=== PATIENT | female | born 1990 | race Caucasian/White ===

== ENCOUNTER 2017-11-25 07:11 | Day surgery (SDC) | payer BC ==
[2017-11-25] MEDS ORDERED: Bupivacaine 25%/EPINEPHrine/PF 30 ML ONE (07:13)
[2017-11-25] MEDS ORDERED: Midazolam 1 MG/ML 2 ML SDV ONE (07:26)
[2017-11-25] MEDS ORDERED: fentaNYL 100 MCG/2 ML SDV ONE (07:26)
[2017-11-25] MEDS ORDERED: Ondansetron 4 MG/2 ML SDV ONE (07:26)
[2017-11-25] MEDS ORDERED: Propofol 200 MG/20 ML SDV ONE ×2 (07:26→08:01)
[2017-11-25] MEDS ORDERED: Glycopyrrolate 0.2 MG/ML SDV ONE (07:27)
--- NOTE | 2017-11-25 07:30 | PCM.PREANE ---
Preanesthetic Assessment - Anesthesia/Transfusion/Family Hx Anesthesia History: Prior Anesthesia Without Reaction Family History of Anesthesia Reaction: No Transfusion History: Prior Transfusion Without Reaction Intubation History: Unknown - Review of Systems General: No Symptoms Pulmonary: No Symptoms Cardiovascular: No Symptoms Gastrointestinal: No Symptoms Neurological: No Symptoms Other: Reports: None - Physical Assessment Height: 1.63 m Weight: 97.069 kg ASA Class: 2 Mental Status: Alert & Oriented x3 Airway Class: Mallampati = 2 Dentition: Reports: Normal Dentition Thyro-Mental Finger Breadths: 3 Mouth Opening Finger Breadths: 2 ROM/Head Extension: Full Lungs: Clear to Auscultation, Normal Respiratory Effort Cardiovascular: Regular Rate, Regular Rhythm - Allergies Allergies/Adverse Reactions: Allergies Allergy/AdvReac Type Severity Reaction Status Date / Time No Known Allergies Allergy Verified 11/21/17 13:45 - Blood Blood Available: No - Anesthesia Plan Pre-Op Medication Ordered: None - Acknowledgements Anesthesia Type Planned: General Anesthesia Pt an Appropriate Candidate for the Planned Anesthesia: Yes Alternatives and Risks of Anesthesia Discussed w Pt/Guardian: Yes Pt/Guardian Understands and Agrees with Anesthesia Plan: Yes PreAnesthesia Questionnaire HEENT History: Reports: Other (See Below) Other HEENT History: has upper and lower permanent retainers Gastrointestinal History: Reports: Diverticulosis CARD SETTER History: Reports: Polycystic Ovaries, Musculoskeletal History: Reports: Fracture Endocrine/Metabolic History: Reports: Obesity/BMI 30+ Hematologic History: Reports: Blood Transfusion(s) - Past Surgical History HEENT Surgical History: Reports: Tonsillectomy Female Surgical History: Reports: Section Musculoskeletal Surgical History: Reports: ORIF Other Musculoskeletal Surgeries/Procedures:: hx of pin fixation of left arm- pin removed - SUBSTANCE USE Smoking Status *Q: Former Smoker Tobacco Use Within Last Twelve Months: No Recreational Drug Use History: No - HOME MEDS Home Medications: Home Meds . [No Known Home Meds] 11/21/17 [History] - CURRENT (IN HOUSE) MEDS Current Meds: Current Medications Hydrocodone Bitart/Acetaminophen ([place] 325-5 Mg) 1 tab PO Q4H PRN PRN Reason: Pain Bupivacaine HCl/Epinephrine Bitart (Marcaine 0.25%/Epinephrine 1:200,000) 10 ml INJECT ONETIME ONE Stop: 11/25/17 08:01 Cefazolin Sodium/Dextrose 2 gm (/ Premix) 50 mls @ 100 mls/hr IV ONETIME ONE Stop: 11/25/17 08:29 Lactated Ringer's (Ringers, Lactated) 1,000 mls @ 125 mls/hr IV ASDIRECTED LENNOX Discontinued Medications Bupivacaine HCl/Epinephrine Bitart (Sensor Mpf 0.25%-Epi [id number]) Confirm Administered Dose 30 mls @ as directed .ROUTE .STK-MED ONE Stop: 11/25/17 07:14
[2017-11-25] MEDS ORDERED: Bupivacaine 0.25%/EPINEPHrine 1:200,000 10 ML SDV INJECT ONE (08:00)
[2017-11-25] MEDS ORDERED: Acetaminophen/HYDROcodone 325-5 MG Tab PO PRN (08:00)
[2017-11-25] MEDS ORDERED: Lactated Ringers 1,000 ML IV SCH (08:00)
[2017-11-25] MEDS ORDERED: ceFAZolin 2 GM in Premix Bag 1 BAG IV ONE (08:00)
[2017-11-25] MEDS ORDERED: Dexamethasone 4 MG/ML 5 ML MDV ONE (08:18)
[2017-11-25] MEDS ORDERED: fentaNYL 100 MCG/2 ML SDV IVPUSH PRN (08:50)
--- NOTE | 2017-11-25 09:20 | PCM.POSTAN ---
POST ANESTHESIA ASSESSMENT - MENTAL STATUS Mental Status: Alert, Oriented - RESPIRATORY Respiratory Status: Respiratory Rate WNL, Airway Patent, O2 Saturation Stable - CARDIOVASCULAR CV Status: Pulse Rate WNL, Blood Pressure Stable - GASTROINTESTINAL GI Status: No Symptoms - PAIN Pain Score: 2 - POST OP HYDRATION Hydration Status: Adequate & Stable - OBSERVATIONS Free Text/Narrative:: no anesthesia problems
--- NOTE | 2017-11-25 09:22 | PCM.OPNOTE ---
- General Post-Op/Procedure Note Date of Surgery/Procedure: 11/25/17 Operative Procedure(s): excision of right axillary breast tissue Pre Op Diagnosis: right accesory axillary breast tissue Post-Op Diagnosis: Same Anesthesia Technique: General LMA, Local Primary Surgeon: Keiry Hawkins Inspector Repairer: Loyda Edwards Complications: None Condition: Good Free Text/Narrative:: Intake & Output 11/24/17 11/25/17 11/25/17 23:59 07:59 15:59 Intake Total 1100 Balance 1100
[2017-11-25 10:50] VITALS: BP 106/70
--- NOTE | 2017-11-30 09:37 | OR ---
SURGEON: SUMMER COOPER MD DATE OF PROCEDURE: 11/25/2017 PREOPERATIVE DIAGNOSIS: Right axillary breast tissue. POSTOPERATIVE DIAGNOSIS: Right axillary breast tissue. PROCEDURE PERFORMED: Excision of right axillary breast tissue. PETROLEUM SUPPLY SPECIALIST: None. INDICATIONS: Ms. Pham is a 27-year-old female who was seen today in evaluation for right axillary breast tissue. Risks and benefits of excision were discussed with her, and she was in agreement to proceed. Risks were including, but not limited to, bleeding, infection, damage to underlying or overlying structures, possible need for future interventions, possible asymmetry, and possible scarring. PROCEDURE IN DETAIL: After informed consent was obtained and placed on the chart, the patient was brought to the operating theater and laid in supine position. After adequate general anesthesia was obtained, the area was prepped and draped, and a time-out was completed to confirm side and site. Once adequately confirmed, attention was then paid to dissection using an axillary incision well hidden in the fold. Dissection was then carried through the skin and subcutaneous tissues using a #15 blade and Bovie electrocautery. The area was dissected using scissors and meticulous visualization for dissection around the mass itself or protecting any cutaneous and deeper nerves. Once adequately circumferentially dissected and removed, the area was copiously irrigated and the mass sent for pathology. Meticulous hemostasis was obtained, and the wound was closed using deep 3-0 Monocryl, Stratafix for the fascia, and for the dermis, a running subcuticular Stratafix for the skin. The patient tolerated this well. All counts and needles were correct at the end of the case. FOLLOWUP INSTRUCTIONS: The patient will see us in clinic in 10 to 14 days or sooner if there are any problems, questions, or concerns. She was given a prescription for [place] for pain control. JUNIOR / RACHEL /[id number] RADHA
== END 2017-11-25 10:30 | disposition home or self-care (01) ==
LOC: MW.SDS 07:11
PROVIDERS: ATTEND Plastic Surgery
DX: Q83.1 Accessory breast (principal); K57.90 Diverticulosis of intestine, part unspecified, without perforation or abscess without bleeding; J20.9 Acute bronchitis, unspecified; E28.2 Polycystic ovarian syndrome; E66.9 Obesity, unspecified; Z68.36 Body mass index [BMI] 36.0-36.9, adult; Z90.89 Acquired absence of other organs; Z98.890 Other specified postprocedural states
CPT/HCPCS: 19120; 81025; A9270; J1100; J2250; J2405; J3010; J7120; 88305; J2704

== ENCOUNTER 2020-02-26 05:26 | Inpatient (IN) | payer BC ==
[2020-02-26] MEDS ORDERED: Sodium Chloride 0.9% 10 ML Syringe FLUSH PRN (06:07)
[2020-02-26] MEDS ORDERED: Citric Acid/Sodium Citrate Solution 30 ML Cup PO ONE (06:07)
[2020-02-26] MEDS ORDERED: Sodium Chloride 0.9% 2.5 ML Syringe FLUSH PRN (06:07)
[2020-02-26] MEDS ORDERED: Sodium Chloride 0.9% 10 ML SDV IV PRN (06:07)
[2020-02-26] MEDS ORDERED: Lactated Ringers 1,000 ML IV SCH (06:15)
[2020-02-26] MEDS ORDERED: Oxytocin/0.9 % Sodium Chloride 30 UNIT/500 ML BAG IV SCH (06:15)
[2020-02-26] MEDS ORDERED: Phenylephrine 1% 10 MG/ML SDV ONE (07:13)
[2020-02-26] MEDS ORDERED: Ondansetron 4 MG/2 ML SDV ONE (07:17)
[2020-02-26] MEDS ORDERED: Dexamethasone 4 MG/ML 5 ML MDV ONE (07:17)
[2020-02-26] MEDS ORDERED: Oxytocin 10 Units/1 ML SDV ONE (07:18)
[2020-02-26] MEDS ORDERED: fentaNYL 100 MCG/2 ML SDV ONE (07:18)
[2020-02-26] MEDS ORDERED: Morphine PF 10 MG/10 ML SDV ONE (07:19)
--- NOTE | 2020-02-26 07:38 | PCM.PREANE ---
Preanesthetic Assessment - Anesthesia/Transfusion/Family Hx Anesthesia History: Prior Anesthesia Without Reaction Family History of Anesthesia Reaction: No Transfusion History: Prior Transfusion Without Reaction Intubation History: Unknown - Review of Systems General: No Symptoms Pulmonary: No Symptoms Cardiovascular: No Symptoms Gastrointestinal: No Symptoms Neurological: No Symptoms Other: Reports: None - Physical Assessment NPO Status Date: 02/25/20 Vital Signs: Last Vital Signs Temp 98 F 02/26/20 05:51 Pulse 98 02/26/20 05:51 Resp 20 02/26/20 05:51 BP 126/86 02/26/20 05:51 Pulse Ox 100 02/26/20 05:51 Height: 5 ft 4 in Weight: 104.326 kg ASA Class: 2 Mental Status: Alert & Oriented x3 Airway Class: Mallampati = 2 Dentition: Reports: Normal Dentition ROM/Head Extension: Full Lungs: Clear to Auscultation, Normal Respiratory Effort Cardiovascular: Regular Rate, Regular Rhythm - Lab Values: Laboratory Last Values WBC 8.71 K/uL (4.0-11.0) 02/25/20 08:16 RBC 4.43 M/uL (4.30-5.90) 02/25/20 08:16 Hgb 13.1 g/dL (12.0-16.0) 02/25/20 08:16 Hct 38.7 % (36.0-46.0) 02/25/20 08:16 MCV 87.4 fL (80.0-98.0) 02/25/20 08:16 MCH 29.6 pg (27.0-32.0) 02/25/20 08:16 MCHC 33.9 g/dL (31.0-37.0) 02/25/20 08:16 RDW Std Deviation 43.1 fl (28.0-62.0) 02/25/20 08:16 RDW Coeff of Courtney 14 % (11.0-15.0) 02/25/20 08:16 Plt Count 159 K/uL (150-400) 02/25/20 08:16 MPV 11.00 fL (7.40-12.00) 02/25/20 08:16 Nucleated RBC % 0.0 /100WBC 02/25/20 08:16 Nucleated RBCs # 0 K/uL 02/25/20 08:16 Blood Type A POSITIVE 02/25/20 08:16 Antibody Screen NEGATIVE 02/25/20 08:16 - Allergies Allergies/Adverse Reactions: Allergies Allergy/AdvReac Type Severity Reaction Status Date / Time No Known Allergies Allergy Verified 02/26/20 06:06 - Blood Blood Available: No - Anesthesia Plan Pre-Op Medication Ordered: None - Acknowledgements Anesthesia Type Planned: Spinal Pt an Appropriate Candidate for the Planned Anesthesia: Yes Alternatives and Risks of Anesthesia Discussed w Pt/Guardian: Yes Pt/Guardian Understands and Agrees with Anesthesia Plan: Yes PreAnesthesia Questionnaire HEENT History: Reports: Other (See Below) Other HEENT History: has upper and lower permanent retainers Cardiovascular History: Reports: None Respiratory History: Reports: None Gastrointestinal History: Reports: Diverticulosis Other Gastrointestinal History: diverticulitis Genitourinary History: Reports: None 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 History: Reports: Polycystic Ovaries, Musculoskeletal History: Reports: Fracture Neurological History: Reports: None Psychiatric History: Reports: None Endocrine/Metabolic History: Reports: Obesity/BMI 30+ Hematologic History: Reports: Blood Transfusion(s) Other Hematologic History: blood transfusion with 1st c/section Immunologic History: Reports: None Oncologic (Cancer) History: Reports: None Dermatologic History: Reports: None - Past Surgical History Head Surgeries/Procedures: Reports: None HEENT Surgical History: Reports: Tonsillectomy Cardiovascular Surgical History: Reports: None Respiratory Surgical History: Reports: None GI Surgical History: Reports: Colonoscopy Female Surgical History: Reports: Section Endocrine Surgical History: Reports: None Neurological Surgical History: Reports: None Musculoskeletal Surgical History: Reports: ORIF Other Musculoskeletal Surgeries/Procedures:: hx of pin fixation of left arm- pin removed Oncologic Surgical History: Reports: None Dermatological Surgical History: Reports: None - SUBSTANCE USE Smoking Status *Q: Never Smoker Second Hand Smoke Exposure: No Recreational Drug Use History: No - HOME MEDS Home Medications: Home Meds Iron 30 mg PO DAILY 02/20/20 [History] Pnv No.95/Ferrous Fum/Folic AC [ Vitamin Tablet] 1 tab PO DAILY 02/20/20 [History] - CURRENT (IN HOUSE) MEDS Current Meds: Current Medications Oxytocin/Sodium Chloride (Oxytocin 30 Unit/500 Ml-Ns) 30 unit in 500 mls @ 250 mls/hr IV TITRATE LENNOX Cefazolin Sodium/Dextrose 2 gm (/ Premix) 50 mls @ 100 mls/hr IV ONETIME ONE Stop: 02/26/20 08:14 Lactated Ringer's (Ringers, Lactated) 1,000 mls @ 500 mls/hr IV BOLUS LENNOX Last Admin: 02/26/20 05:55 Dose: 500 mls/hr Documented by: Sodium Chloride (Saline Flush) 10 ml FLUSH ASDIRECTED PRN PRN Reason: Keep Vein Open Sodium Chloride (Saline Flush) 2.5 ml FLUSH ASDIRECTED PRN PRN Reason: Keep Vein Open Sodium Chloride (Normal Saline) 10 ml IV ASDIRECTED PRN PRN Reason: IV Use Discontinued Medications Citric Acid/Sodium Citrate (Bicitra Solution) 30 ml PO ONETIME ONE Stop: 02/26/20 06:08 Last Admin: 02/26/20 07:37 Dose: 30 ml Documented by: Dexamethasone (Dexamethasone) Confirm Administered Dose 20 mg .ROUTE .STK-MED ONE Stop: 02/26/20 07:18 Fentanyl (Sublimaze) Confirm Administered Dose 100 mcg .ROUTE .STK-MED ONE Stop: 02/26/20 07:19 Morphine Sulfate (Duramorph Pf) Confirm Administered Dose 10 mg .ROUTE .STK-MED ONE Stop: 02/26/20 07:20 Ondansetron HCl (Zofran) Confirm Administered Dose 4 mg .ROUTE .STK-MED ONE Stop: 02/26/20 07:18 Oxytocin (Pitocin) Confirm Administered Dose 30 unit .ROUTE .STK-MED ONE Stop: 02/26/20 07:19 Phenylephrine HCl (Julio Cesar-Synephrine) Confirm Administered Dose 10 mg .ROUTE .STK-M ED ONE Stop: 02/26/20 07:14
[2020-02-26] MEDS ORDERED: Acetaminophen/oxyCODONE 325-5 MG Tab PO PRN (07:43)
[2020-02-26] MEDS ORDERED: fentaNYL 100 MCG/2 ML SDV IVPUSH PRN (07:43)
[2020-02-26] MEDS ORDERED: Nalbuphine 10 MG/1 ML Vial IVPUSH PRN (07:44)
[2020-02-26] MEDS ORDERED: ceFAZolin 2 GM in Premix Bag 1 BAG IV ONE (07:45)
[2020-02-26] MEDS ORDERED: ceFAZolin 1 GM Vial ONE (08:13)
[2020-02-26] MEDS ORDERED: Ketorolac 30 MG/ML SDV ONE (08:48)
[2020-02-26] MEDS ORDERED: Misoprostol 200 MCG Tab RECTAL PRN (09:05)
[2020-02-26] MEDS ORDERED: Tranexamic Acid 1,000 MG in Sodium Chloride 0.9% 100 ML IV PRN (09:05)
[2020-02-26] MEDS ORDERED: Methylergonovine 0.2 MG/1 ML Amp IM PRN (09:05)
[2020-02-26] MEDS ORDERED: Lanolin 100% Cream 7 GM Tube TOP PRN (09:05)
[2020-02-26] MEDS ORDERED: Bisacodyl 10 MG Supp RECTAL PRN (09:05)
[2020-02-26] MEDS ORDERED: Oxytocin 10 Units/1 ML SDV IM PRN (09:05)
[2020-02-26] MEDS ORDERED: Aluminum Hydroxide/Magnesium Hydroxide/Simethicone Susp 30 ML Cup PO PRN (09:05)
[2020-02-26] MEDS ORDERED: diphenhydrAMINE 50 MG/ML SDV IVPUSH PRN (09:05)
[2020-02-26] MEDS ORDERED: Ondansetron 4 MG/2 ML SDV IVPUSH PRN (09:05)
--- NOTE | 2020-02-26 09:13 | PCM.OPNOTE ---
- General Post-Op/Procedure Note Date of Surgery/Procedure: 02/26/20 Operative Procedure(s): Repeat low-transverse Pre Op Diagnosis: Repeat Anesthesia Technique: Spinal Primary Surgeon: Lorenza Miranda Anesthesia Provider: Nahum Ruelas Reason Acid Pump Operator Was Necessary: Sheeba Pham [facility] insurance sales assistant Pathology: Placenta with intact membranes Fluid Replacement, Intraop: 1,500 Output, Urine Amount: 350 EBL in mLs: 700 Complications: None Condition: Good Free Text/Narrative:: Live female born at 0822 weighing 3500g via repeat low-transverse c- section, no complications, patient and in good condition
--- NOTE | 2020-02-26 10:04 | PCM.POSTAN ---
POST ANESTHESIA ASSESSMENT - MENTAL STATUS Mental Status: Alert, Oriented - VITAL SIGNS Vital Signs: Last Vital Signs Temp 36.6 C 02/26/20 05:51 Pulse 98 02/26/20 05:51 Resp 20 02/26/20 05:51 BP 126/86 02/26/20 05:51 Pulse Ox 100 02/26/20 05:51 - RESPIRATORY Respiratory Status: Respiratory Rate WNL, Airway Patent, O2 Saturation Stable - CARDIOVASCULAR CV Status: Pulse Rate WNL, Blood Pressure Stable - GASTROINTESTINAL GI Status: No Symptoms - PAIN Pain Score: 2 - POST OP HYDRATION Hydration Status: Adequate & Stable - OBSERVATIONS Free Text/Narrative:: Spinal level regressing (currently L1), able to lift right leg off bed, moves left leg.
[2020-02-26] MEDS: Ketorolac 30 MG/ML SDV IVPUSH SCH ×3 (10:56→21:18)
[2020-02-26] MEDS: Simethicone 80 MG Tab.Chew PO SCH ×3 (12:25→23:59)
[2020-02-26] MEDS: Lactated Ringers 1,000 ML IV SCH ×2 (12:26→20:32)
--- NOTE | 2020-02-26 12:43 | OR ---
SURGEON: Lorenza Miranda M.D. DATE OF PROCEDURE: 02/26/2020 PREOPERATIVE DIAGNOSES: A 39-week intrauterine , previous section, desires repeat. POSTOPERATIVE DIAGNOSES: A 39-week intrauterine , previous section, desires repeat. PROCEDURE: Repeat low transverse section. PRIMARY SURGEON: Lorenza Miranda MD ANESTHESIA: Spinal. ESTIMATED BLOOD LOSS: 700 mL. FLUIDS: 1500 mL of crystalloid. COMPLICATIONS: None known. FINDINGS: Viable female. score of 8 at one minute and 9 at five minutes. Weight of 3500 g. Delivery, intact placenta, 3-vessel cord. DISPOSITION: Infant to nursery, mom to PACU, stable. PROCEDURE DETAILS: Ally is a 29-year-old, G2, P1, at 39 weeks' gestational age, who presents today for a scheduled repeat delivery. Risks of procedure have been discussed. Proper consent obtained. The patient was taken to the operating room where she underwent spinal anesthetic, was then placed in dorsal supine position with leftward tilt. SCDs to lower extremity. Flores to gravity. Was prepped and draped in usual sterile fashion. Received Ancef prophylactically. Time-out was performed. After being prepped and draped in usual sterile fashion, anesthesia was tested, found to be adequate. Previous Pfannenstiel scar was now excised. Subcutaneous tissue was incised down to the level of the rectus fascia, which was incised laterally on either side sharply and bluntly. Superior aspect of the fascia was tented upward, dissected sharply and bluntly away from underlying muscle. In a similar aspect, this was performed to the inferior aspect of the fascia. Rectus muscles were in the midline. Peritoneum was tented upward, entered sharply. Peritoneum and rectus muscles were now lateralized bluntly. Uterine position and position palpated. Self-retaining retractor was gently placed. Uterovesical reflection was visualized. Bladder flap was created sharply and bluntly. Bladder was mobilized away from lower uterine segment. Low transverse hysterotomy was now performed. Uterine cavity was entered with blunt-ended scalpel. Hysterotomy was lateralized bluntly. Amniotomy was performed, clear fluid returned. Infant's head was flexed, delivered from the pelvis. Fundal pressure was applied. The head was delivered followed by anterior shoulder, posterior shoulder, and the remainder of the body without difficulty. Infant's oropharynx and nares were bulb suctioned. The cord was clamped x2 and cut. was handed off to attending nursery staff. Cord arterial, cord venous, cord blood sampling obtained. Light pressure was applied, the placenta now delivered. Uterine cavity was cleared of all clot and debris. Hysterotomy was repaired using 0 Vicryl in continuous running locked fashion followed by a re-imbricating layer. There were two regions of bleeding along the left lateral aspect of the incision. This was replicated with figure- of-eight sutures x2. Hemostasis thereafter evident. Posterior aspect of the uterus inspected. No defects or hematomas found be forming. Region was well irrigated, suction dried. Tubes and ovaries appeared normal. Uterus returned to the abdominal cavity. Colonic gutters cleared of all clot and debris, well irrigated, suction dried. Hysterotomy once again inspected, any areas of serosal oozing were cauterized. Hemostasis appeared evident. Uterus remained firm. Self-retaining retractor now gently removed. Bladder blade was placed. Hysterotomy once again inspected, found to be hemostatic. Rectus muscle and peritoneum were now reapproximated using 0 Vicryl in inverted mattress suture technique. Anterior aspect of the muscle and posterior aspect of the fascia were closely inspected and any areas of oozing were cauterized. Rectus fascia was reapproximated using 0 Vicryl in continuous running fashion, beginning laterally on each side and meeting in the midline. Subcutaneous tissue was well irrigated, suction dried, any areas of oozing were cauterized. Skin edges were reapproximated using 3-0 Vicryl on a Miguel needle in subcuticular fashion followed by Mastisol and half-inch Steri-Strips. Sponge, instrument, and needle count was correct x2. The patient tolerated the procedure well overall. She will go to PACU in stable condition, infant to nursery. GERSON / RACHEL /[id number]
[2020-02-26] MEDS: Docusate Sodium 100 MG Cap PO SCH (20:32)
[2020-02-27] MEDS: Ketorolac 30 MG/ML SDV IVPUSH SCH ×2 (03:33→10:46)
[2020-02-27] MEDS: Simethicone 80 MG Tab.Chew PO SCH ×3 (06:12→17:23)
--- NOTE | 2020-02-27 07:22 | PCM.PNPP ---
<Sheeba Pham - Last Filed: 02/27/20 07:29> - General Info Date of Service: 02/27/20 Admission Dx/Problem (Free Text): Repeat low-transverse c section Subjective Update: Patient is feeling well, reports pain is well controlled. She is about a 3 for incisional pain when she is walking. Ambulating, bush out, passing flatus, no urination since bush out, no bowel movement. Trace pedal edema with slight ecchymosis of the left posterior ankle, nontender to palpation and not swollen out of proportion to the other ankle. is nursing well Functional Status: Reports: Pain Controlled, Tolerating Diet, Ambulating Pain Score: 3 (With ambulation) - Review of Systems General: Reports: No Symptoms HEENT: Reports: No Symptoms Pulmonary: Reports: No Symptoms Cardiovascular: Reports: No Symptoms Gastrointestinal: Reports: Flatus Genitourinary: Reports: No Symptoms Musculoskeletal: Reports: No Symptoms Skin: Reports: No Symptoms Neurological: Reports: No Symptoms Psychiatric: Reports: No Symptoms - General Info Date of Service: 02/27/20 - Patient Data Vital Signs - Most Recent: Last Vital Signs Temp 98.4 F 02/27/20 03:00 Pulse 68 02/27/20 06:34 Resp 16 02/27/20 06:34 BP 117/82 02/27/20 03:00 Pulse Ox 99 02/27/20 06:34 Weight - Most Recent: 104.326 kg I&O - Last 24 Hours: Intake & Output 02/26/20 02/27/20 02/27/20 22:59 06:59 14:59 Intake Total 527 Output Total 555 930 Balance -248 -930 Lab Results - Last 24 Hours: Laboratory Results - last 24 hr 02/26/20 02/27/20 Range/Units 08:22 05:37 Hgb 9.9 L (12.0-16.0) g/dL Hct 30.2 L (36.0-46.0) % Cord ABG pH 7.265 (7.18-7.38) Cord ABG Base Excess -2 (-10--2) Cord VBG pH 7.357 (7.25-7.45) Cord VBG Base Excess -2 (-10--2) Med Orders - Current: Current Medications Al Hydroxide/Mg Hydroxide (Mag-Al Plus) 30 ml PO Q8H PRN PRN Reason: Heartburn Bisacodyl (Dulcolax) 10 mg RECTAL ONETIME PRN PRN Reason: Constipation Diphenhydramine HCl (Benadryl) 25 mg IVPUSH Q6H PRN PRN Reason: Itching or Nausea Docusate Sodium (Colace) 100 mg PO BID [facility] Last Admin: 02/26/20 20:32 Dose: 100 mg Documented by: Emollient Ointment (Lansinoh Hpa) 0 gm TOP ASDIRECTED PRN PRN Reason: Sore Nipples Fentanyl (Sublimaze) 50 mcg IVPUSH Q5M PRN PRN Reason: Pain (severe 7-10) Stop: 02/27/20 07:44 Oxytocin/Sodium Chloride (Oxytocin 30 Unit/500 Ml-Ns) 30 unit in 500 mls @ 250 mls/hr IV TITRATE [facility] Lactated Ringer's (Ringers, Lactated) 1,000 mls @ 500 mls/hr IV BOLUS [facility] Last Admin: 02/26/20 05:55 Dose: 500 mls/hr Documented by: Lactated Ringer's (Ringers, Lactated) 1,000 mls @ 125 mls/hr IV ASDIRECTED [facility] Last Admin: 02/26/20 20:32 Dose: 125 mls/hr Documented by: Tranexamic Acid 1,000 mg/ (Sodium Chloride) 110 mls @ 660 mls/hr IV ONETIME PRN PRN Reason: Bleeding Ibuprofen (Motrin) 800 mg PO Q8H PRN PRN Reason: mild pain or fever Ketorolac Tromethamine (Toradol) 30 mg IVPUSH Q6H [facility] Stop: 02/27/20 09:16 Last Admin: 02/27/20 03:33 Dose: 30 mg Documented by: Methylergonovine Maleate (Methergine) 0.2 mg IM ONETIME PRN PRN Reason: Excessive Vaginal Bleeding Misoprostol (Cytotec) 1,000 mcg RECTAL ONETIME PRN PRN Reason: excessive bleeding Nalbuphine HCl (Nubain) 2.5 mg IVPUSH Q3H PRN PRN Reason: Pruritis Stop: 02/27/20 07:44 Ondansetron HCl (Zofran) 4 mg IVPUSH Q4H PRN PRN Reason: Nausea/Vomiting Oxycodone/Acetaminophen (Percocet 325-5 Mg) 1 tab PO ONETIME PRN PRN Reason: Pain (moderate 4-6) Oxycodone/Acetaminophen (Percocet 325-5 Mg) 1 tab PO Q4H PRN PRN Reason: Pain (moderate 4-6) Oxycodone/Acetaminophen (Percocet 325-5 Mg) 2 tab PO Q4H PRN PRN Reason: Pain (moderate 4-6) Oxytocin (Pitocin) 10 unit IM ASDIRECTED PRN PRN Reason: Excessive Vaginal Bleeding Simethicone (Simethicone) 160 mg PO QID [facility] Last Admin: 02/27/20 06:12 Dose: 160 mg Documented by: Sodium Chloride (Saline Flush) 10 ml FLUSH ASDIRECTED PRN PRN Reason: Keep Vein Open Sodium Chloride (Saline Flush) 2.5 ml FLUSH ASDIRECTED PRN PRN Reason: Keep Vein Open Sodium Chloride (Normal Saline) 10 ml IV ASDIRECTED PRN PRN Reason: IV Use Discontinued Medications Cefazolin Sodium (Ancef) Confirm Administered Dose 2 gm .ROUTE .STK-MED ONE Stop: 02/26/20 08:14 Citric Acid/Sodium Citrate (Bicitra Solution) 30 ml PO ONETIME ONE Stop: 02/26/20 06:08 Last Admin: 02/26/20 07:37 Dose: 30 ml Documented by: Dexamethasone (Dexamethasone) Confirm Administered Dose 20 mg .ROUTE .STK-MED ONE Stop: 02/26/20 07:18 Fentanyl (Sublimaze) Confirm Administered Dose 100 mcg .ROUTE .STK-MED ONE Stop: 02/26/20 07:19 Cefazolin Sodium/Dextrose 2 gm (/ Premix) 50 mls @ 100 mls/hr IV ONETIME ONE Stop: 02/26/20 08:14 Last Admin: 02/26/20 10:56 Dose: Not Given Documented by: Ketorolac Tromethamine (Toradol) Confirm Administered Dose 30 mg .ROUTE .STK-MED ONE Stop: 02/26/20 08:49 Morphine Sulfate (Duramorph Pf) Confirm Administered Dose 10 mg .ROUTE .STK-MED ONE Stop: 02/26/20 07:20 Ondansetron HCl (Zofran) Confirm Administered Dose 4 mg .ROUTE .STK-MED ONE Stop: 02/26/20 07:18 Oxytocin (Pitocin) Confirm Administered Dose 30 unit .ROUTE .STK-MED ONE Stop: 02/26/20 07:19 Phenylephrine HCl (Julio Cesar-Synephrine) Confirm Administered Dose 10 mg .ROUTE .STK- MED ONE Stop: 02/26/20 07:14 - Infant Interaction Infant Disposition, : at Bedside Infant Interaction: Holding Feeding: Attempted ; Nursed Fair/Poor (Working with the nipple shield, seems to do better with that) Support Person: - Recovery Exam Fundal Tone: Firm Fundal Level: 1 Fingerbreadths Below Umbilicus Fundal Placement: Midline Lochia Amount: Scant Lochia Color: Rubra/Red Perineum Description: Intact, Minimal Bruising/Swelling Episiotomy/Laceration: None Bladder Status: No: Indwelling Catheter in Place (Catheter out this am, no urination yet) Urinary Elimination: No: Indwelling Catheter - Exam General: Alert, Oriented, Cooperative, No Acute Distress Lungs: Clear to Auscultation, Normal Respiratory Effort Cardiovascular: Regular Rate, Regular Rhythm GI/Abdominal Exam: Normal Bowel Sounds, Soft, Non-Tender, No Organomegaly, No Distention, No Abnormal Bruit, No Mass, Pelvis Stable Extremities: Normal Inspection, Normal Range of Motion, Non-Tender, Pedal Edema. No: Keshia's Sign, Leg Pain (Small ecchymosis of the left posterior ankle ) Skin: Warm, Dry, Intact Wound/Incisions: Dressing Dry and Intact, No Drainage (Dried blood on bandage, no oozing) Psy/Mental Status: Alert, Normal Affect, Normal Mood - Assessment Assessment:: 29 yo s/p POD1 for repeat low-transverse , no complications, progressing well and pain is well controlled - Plan Plan:: Continue post- cares Bush out, await urination Ambulation Incentive spirometry x10 per day Diet as tolerated Adequate fluid intake Scheduled pain meds Shower today D/c home tomorrow after 48 hours <Lorenza Miranda - Last Filed: 02/27/20 08:50> - Patient Data Vital Signs - Most Recent: Last Vital Signs Temp 36.9 C 02/27/20 03:00 Pulse 68 02/27/20 06:34 Resp 16 08/05/20 06:34 BP 117/82 02/27/20 03:00 Pulse Ox 99 02/27/20 06:34 I&O - Last 24 Hours: Intake & Output 02/26/20 02/27/20 02/27/20 22:59 06:59 14:59 Intake Total 527 Output Total 775 930 Balance -248 -930 Lab Results - Last 24 Hours: Laboratory Results - last 24 hr 02/26/20 02/27/20 Range/Units 08:22 05:37 Hgb 9.9 L (12.0-16.0) g/dL Hct 30.2 L (36.0-46.0) % Cord ABG pH 7.265 (7.18-7.38) Cord ABG Base Excess -2 (-10--2) Cord VBG pH 7.357 (7.25-7.45) Cord VBG Base Excess -2 (-10--2) Med Orders - Current: Current Medications Al Hydroxide/Mg Hydroxide (Mag-Al Plus) 30 ml PO Q8H PRN PRN Reason: Heartburn Bisacodyl (Dulcolax) 10 mg RECTAL ONETIME PRN PRN Reason: Constipation Diphenhydramine HCl (Benadryl) 25 mg IVPUSH Q6H PRN PRN Reason: Itching or Nausea Docusate Sodium (Colace) 100 mg PO BID [facility] Last Admin: 02/26/20 20:32 Dose: 100 mg Documented by: Emollient Ointment (Lansinoh Hpa) 0 gm TOP ASDIRECTED PRN PRN Reason: Sore Nipples Oxytocin/Sodium Chloride (Oxytocin 30 Unit/500 Ml-Ns) 30 unit in 500 mls @ 250 mls/hr IV TITRATE [facility] Lactated Ringer's (Ringers, Lactated) 1,000 mls @ 500 mls/hr IV BOLUS [facility] Last Admin: 02/26/20 05:55 Dose: 500 mls/hr Documented by: Lactated Ringer's (Ringers, Lactated) 1,000 mls @ 125 mls/hr IV ASDIRECTED [facility] Last Admin: 02/26/20 20:32 Dose: 125 mls/hr Documented by: Tranexamic Acid 1,000 mg/ (Sodium Chloride) 110 mls @ 660 mls/hr IV ONETIME PRN PRN Reason: Bleeding Ibuprofen (Motrin) 800 mg PO Q8H PRN PRN Reason: mild pain or fever Ketorolac Tromethamine (Toradol) 30 mg IVPUSH Q6H [facility] Stop: 02/27/20 09:16 Last Admin: 02/27/20 03:33 Dose: 30 mg Documented by: Methylergonovine Maleate (Methergine) 0.2 mg IM ONETIME PRN PRN Reason: Excessive Vaginal Bleeding Misoprostol (Cytotec) 1,000 mcg RECTAL ONETIME PRN PRN Reason: excessive bleeding Ondansetron HCl (Zofran) 4 mg IVPUSH Q4H PRN PRN Reason: Nausea/Vomiting Oxycodone/Acetaminophen (Percocet 325-5 Mg) 1 tab PO ONETIME PRN PRN Reason: Pain (moderate 4-6) Oxycodone/Acetaminophen (Percocet 325-5 Mg) 1 tab PO Q4H PRN PRN Reason: Pain (moderate 4-6) Oxycodone/Acetaminophen (Percocet 325-5 Mg) 2 tab PO Q4H PRN PRN Reason: Pain (moderate 4-6) Oxytocin (Pitocin) 10 unit IM ASDIRECTED PRN PRN Reason: Excessive Vaginal Bleeding Simethicone (Simethicone) 160 mg PO QID [facility] Last Admin: 02/27/20 06:12 Dose: 160 mg Documented by: Sodium Chloride (Saline Flush) 10 ml FLUSH ASDIRECTED PRN PRN Reason: Keep Vein Open Sodium Chloride (Saline Flush) 2.5 ml FLUSH ASDIRECTED PRN PRN Reason: Keep Vein Open Sodium Chloride (Normal Saline) 10 ml IV ASDIRECTED PRN PRN Reason: IV Use Discontinued Medications Cefazolin Sodium (Ancef) Confirm Administered Dose 2 gm .ROUTE .STK-MED ONE Stop: 02/26/20 08:14 Citric Acid/Sodium Citrate (Bicitra Solution) 30 ml PO ONETIME ONE Stop: 02/26/20 06:08 Last Admin: 02/26/20 07:37 Dose: 30 ml Documented by: Dexamethasone (Dexamethasone) Confirm Administered Dose 20 mg .ROUTE .STK-MED ONE Stop: 02/26/20 07:18 Fentanyl (Sublimaze) Confirm Administered Dose 100 mcg .ROUTE .STK-MED ONE Stop: 02/26/20 07:19 Fentanyl (Sublimaze) 50 mcg IVPUSH Q5M PRN PRN Reason: Pain (severe 7-10) Stop: 02/27/20 07:44 Cefazolin Sodium/Dextrose 2 gm (/ Premix) 50 mls @ 100 mls/hr IV ONETIME ONE Stop: 02/26/20 08:14 Last Admin: 02/26/20 10:56 Dose: Not Given Documented by: Ketorolac Tromethamine (Toradol) Confirm Administered Dose 30 mg .ROUTE .STK-MED ONE Stop: 02/26/20 08:49 Morphine Sulfate (Duramorph Pf) Confirm Administered Dose 10 mg .ROUTE .STK-MED ONE Stop: 02/26/20 07:20 Nalbuphine HCl (Nubain) 2.5 mg IVPUSH Q3H PRN PRN Reason: Pruritis Stop: 02/27/20 07:44 Ondansetron HCl (Zofran) Confirm Administered Dose 4 mg .ROUTE .STK-MED ONE Stop: 02/26/20 07:18 Oxytocin (Pitocin) Confirm Administered Dose 30 unit .ROUTE .STK-MED ONE Stop: 02/26/20 07:19 Phenylephrine HCl (Julio Cesar-Synephrine) Confirm Administered Dose 10 mg .ROUTE .STK- MED ONE Stop: 02/26/20 07:14 - Problem List & Annotations (1) Status post repeat low transverse section SNOMED Code(s): 528896343, 34107433, 762942406, [id number], 981931274 Code(s): Z98.891 - HISTORY OF UTERINE SCAR FROM PREVIOUS SURGERY Status: Acute Current Visit: Yes - Problem List Review Problem List Initiated/Reviewed/Updated: Yes - My Orders Last 24 Hours: My Active Orders 02/26/20 09:05 Patient Status [ADT] Routine Ambulate [RC] PER UNIT ROUTINE Antiembolic Devices [RC] PER UNIT ROUTINE Communication Order [RC] PER UNIT ROUTINE Communication Order [RC] PER UNIT ROUTINE Communication Order [RC] Per Unit Routine May Shower [RC] ASDIRECTED Notify Provider Intake and Out [RC] ASDIRECTED Notify Provider Vital Signs [RC] ASDIRECTED RT Incentive Spirometry [RC] Q2HWA Acetaminophen/oxyCODONE [Percocet 325-5 MG] 1 tab PO Q4H PRN Acetaminophen/oxyCODONE [Percocet 325-5 MG] 2 tab PO Q4H PRN Alum Hydrox/Mag Hydrox/Simeth [Mag-Al Plus] 30 ml PO Q8H PRN Lanolin [Lansinoh HPA] See Dose Instructions TOP ASDIRECTED PRN Methylergonovine [Methergine] 0.2 mg IM ONETIME PRN Ondansetron [Zofran] 4 mg IVPUSH Q4H PRN Oxytocin [Pitocin] 10 unit IM ASDIRECTED PRN Tranexamic Acid [Cyklokapron] 1,000 mg Sodium Chloride 0.9% [Normal Saline] 100 ml IV ONETIME bisacodyL [Dulcolax] 10 mg RECTAL ONETIME PRN diphenhydrAMINE [Benadryl] 25 mg IVPUSH Q6H PRN miSOPROStoL [Cytotec] 1,000 mcg RECTAL ONETIME PRN Abdominal Binder [OM.PC] Routine Assess Lochia [WOMSER] Per Unit Routine Assess Uterine Involution [WOMSER] Per Unit Routine Breast Pump [WOMSER] Per Unit Routine Heat Therapy [OM.PC] Routine Ice Therapy [OM.PC] Routine Peripheral IV Discontinue [OM.PC] Routine Sequential Compression Device [OM.PC] Per Unit Routine 02/26/20 09:15 Ketorolac [Toradol] 30 mg IVPUSH Q6H Lactated Ringers [Ringers, Lactated] 1,000 ml IV ASDIRECTED 02/26/20 Lunch Regular Diet [DIET] 02/26/20 12:00 Simethicone 160 mg PO QID 02/26/20 21:00 Docusate Sodium [Colace] 100 mg PO BID 02/27/20 15:15 Ibuprofen [Motrin] 800 mg PO Q8H PRN - Plan Plan:: Patient seen and examined, doing well overal. Continue PP cares.
--- NOTE | 2020-02-27 07:28 | PCM48HPAN ---
Post Anesthesia Note - EVALUATION WITHIN 48HRS OF ANESTHETIC Vital Signs in Normal Range: Yes Patient Participated in Evaluation: Yes Respiratory Function Stable: Yes Airway Patent: Yes Cardiovascular Function Stable: Yes Hydration Status Stable: Yes Pain Control Satisfactory: Yes (denies pain at rest, 3/10 incisional pain with movement. Good pain control.) Nausea and Vomiting Control Satisfactory: Yes (Denies N/V, taking PO fluids and food well.) Mental Status Recovered: Yes Vital Signs: Last Vital Signs Temp 36.9 C 02/27/20 03:00 Pulse 68 02/27/20 06:34 Resp 16 02/27/20 06:34 BP 117/82 02/27/20 03:00 Pulse Ox 99 02/27/20 06:34 - COMMENTS/OBSERVATIONS Free Text/Narrative:: Reports steady ambulation with full return of strength and sensation to BLE.
[2020-02-27] MEDS: Acetaminophen/oxyCODONE 325-5 MG Tab PO PRN ×4 (09:01→21:27)
[2020-02-27] MEDS: Docusate Sodium 100 MG Cap PO SCH ×2 (09:01→21:27)
[2020-02-27] MEDS: Ibuprofen 800 MG Tab PO PRN ×2 (14:29→22:36)
[2020-02-28] MEDS: Simethicone 80 MG Tab.Chew PO SCH ×2 (00:02→06:12)
[2020-02-28] MEDS: Acetaminophen/oxyCODONE 325-5 MG Tab PO PRN (03:59)
--- NOTE | 2020-02-28 07:47 | PCM.PNPP ---
<Sheeba Pham - Last Filed: 02/28/20 07:42> - General Info Date of Service: 02/28/20 Admission Dx/Problem (Free Text): Repeat low-transverse Subjective Update: Patient is feeling well, reports pain is well controlled this am. She states yesterday afternoon she was in a lot more pain but it has improved. Ambulating, passing flatus, yet to have a bowel movement. Urinating with mild discomfort. Tolerating general diet. Working with infant to nurse and supplement with bottle. Functional Status: Reports: Pain Controlled, Tolerating Diet, Ambulating, Urinating Pain Score: 1 - Review of Systems General: Reports: No Symptoms HEENT: Reports: No Symptoms Pulmonary: Reports: No Symptoms Cardiovascular: Reports: No Symptoms Gastrointestinal: Reports: Flatus. Denies: Decreased Appetite, Nausea, Vomiting Genitourinary: Reports: No Symptoms (Mild irritation with urination but not burning) Musculoskeletal: Reports: No Symptoms Skin: Reports: No Symptoms Neurological: Reports: No Symptoms Psychiatric: Reports: No Symptoms - General Info Date of Service: 02/28/20 - Patient Data Vital Signs - Most Recent: Last Vital Signs Temp 97.5 F 02/28/20 04:00 Pulse 77 02/28/20 04:00 Resp 15 02/28/20 04:00 BP 115/63 02/28/20 04:00 Pulse Ox 96 02/28/20 04:00 Weight - Most Recent: 104.326 kg Med Orders - Current: Current Medications Al Hydroxide/Mg Hydroxide (Mag-Al Plus) 30 ml PO Q8H PRN PRN Reason: Heartburn Bisacodyl (Dulcolax) 10 mg RECTAL ONETIME PRN PRN Reason: Constipation Diphenhydramine HCl (Benadryl) 25 mg IVPUSH Q6H PRN PRN Reason: Itching or Nausea Docusate Sodium (Colace) 100 mg PO BID [facility] Last Admin: 02/27/20 21:27 Dose: 100 mg Documented by: Emollient Ointment (Lansinoh Hpa) 0 gm TOP ASDIRECTED PRN PRN Reason: Sore Nipples Oxytocin/Sodium Chloride (Oxytocin 30 Unit/500 Ml-Ns) 30 unit in 500 mls @ 250 mls/hr IV TITRATE [facility] Lactated Ringer's (Ringers, Lactated) 1,000 mls @ 500 mls/hr IV BOLUS [facility] Last Admin: 02/26/20 05:55 Dose: 500 mls/hr Documented by: Lactated Ringer's (Ringers, Lactated) 1,000 mls @ 125 mls/hr IV ASDIRECTED [facility] Last Admin: 02/26/20 20:32 Dose: 125 mls/hr Documented by: Tranexamic Acid 1,000 mg/ (Sodium Chloride) 110 mls @ 660 mls/hr IV ONETIME PRN PRN Reason: Bleeding Ibuprofen (Motrin) 800 mg PO Q8H PRN PRN Reason: mild pain or fever Last Admin: 02/27/20 22:36 Dose: 800 mg Documented by: Methylergonovine Maleate (Methergine) 0.2 mg IM ONETIME PRN PRN Reason: Excessive Vaginal Bleeding Misoprostol (Cytotec) 1,000 mcg RECTAL ONETIME PRN PRN Reason: excessive bleeding Ondansetron HCl (Zofran) 4 mg IVPUSH Q4H PRN PRN Reason: Nausea/Vomiting Oxycodone/Acetaminophen (Percocet 325-5 Mg) 1 tab PO ONETIME PRN PRN Reason: Pain (moderate 4-6) Oxycodone/Acetaminophen (Percocet 325-5 Mg) 1 tab PO Q4H PRN PRN Reason: Pain (moderate 4-6) Last Admin: 02/27/20 17:23 Dose: 1 tab Documented by: Oxycodone/Acetaminophen (Percocet 325-5 Mg) 2 tab PO Q4H PRN PRN Reason: Pain (moderate 4-6) Last Admin: 02/28/20 03:59 Dose: 2 tab Documented by: Oxytocin (Pitocin) 10 unit IM ASDIRECTED PRN PRN Reason: Excessive Vaginal Bleeding Simethicone (Simethicone) 160 mg PO QID [facility] Last Admin: 02/28/20 06:12 Dose: 160 mg Documented by: Sodium Chloride (Saline Flush) 10 ml FLUSH ASDIRECTED PRN PRN Reason: Keep Vein Open Sodium Chloride (Saline Flush) 2.5 ml FLUSH ASDIRECTED PRN PRN Reason: Keep Vein Open Sodium Chloride (Normal Saline) 10 ml IV ASDIRECTED PRN PRN Reason: IV Use Discontinued Medications Cefazolin Sodium (Ancef) Confirm Administered Dose 2 gm .ROUTE .STK-MED ONE Stop: 02/26/20 08:14 Citric Acid/Sodium Citrate (Bicitra Solution) 30 ml PO ONETIME ONE Stop: 02/26/20 06:08 Last Admin: 02/26/20 07:37 Dose: 30 ml Documented by: Dexamethasone (Dexamethasone) Confirm Administered Dose 20 mg .ROUTE .STK-MED ONE Stop: 02/26/20 07:18 Fentanyl (Sublimaze) Confirm Administered Dose 100 mcg .ROUTE .STK-MED ONE Stop: 02/26/20 07:19 Fentanyl (Sublimaze) 50 mcg IVPUSH Q5M PRN PRN Reason: Pain (severe 7-10) Stop: 02/27/20 07:44 Cefazolin Sodium/Dextrose 2 gm (/ Premix) 50 mls @ 100 mls/hr IV ONETIME ONE Stop: 02/26/20 08:14 Last Admin: 02/26/20 10:56 Dose: Not Given Documented by: Ketorolac Tromethamine (Toradol) Confirm Administered Dose 30 mg .ROUTE .STK-MED ONE Stop: 02/26/20 08:49 Ketorolac Tromethamine (Toradol) 30 mg IVPUSH Q6H [facility] Stop: 02/27/20 09:16 Last Admin: 02/27/20 10:46 Dose: Not Given Documented by: Morphine Sulfate (Duramorph Pf) Confirm Administered Dose 10 mg .ROUTE .STK-MED ONE Stop: 02/26/20 07:20 Nalbuphine HCl (Nubain) 2.5 mg IVPUSH Q3H PRN PRN Reason: Pruritis Stop: 02/27/20 07:44 Ondansetron HCl (Zofran) Confirm Administered Dose 4 mg .ROUTE .STK-MED ONE Stop: 02/26/20 07:18 Oxytocin (Pitocin) Confirm Administered Dose 30 unit .ROUTE .STK-MED ONE Stop: 02/26/20 07:19 Phenylephrine HCl (Julio Cesar-Synephrine) Confirm Administered Dose 10 mg .ROUTE .STK- MED ONE Stop: 02/26/20 07:14 - Infant Interaction Infant Disposition, : [place] at Bedside Infant Interaction: Holding Infant Feeding: Attempted ; Nursed Fair/Poor (Working with the nipple shield, seems to do better with that, supplementing with bottle feeding) Support Person: - Recovery Exam Fundal Tone: Firm Fundal Level: 1 Fingerbreadths Below Umbilicus Fundal Placement: Midline Lochia Amount: None Lochia Color: Alba/White Perineum Description: Intact, Minimal Bruising/Swelling Episiotomy/Laceration: None Bladder Status: Voiding Urinary Elimination: Voided Other Urinary Elimination, : Catheter removed on previous shift, waiting for first void post removal - Exam General: Alert, Oriented, Cooperative, No Acute Distress Neck: Supple Lungs: Clear to Auscultation, Normal Respiratory Effort Cardiovascular: Regular Rate, Regular Rhythm GI/Abdominal Exam: Normal Bowel Sounds, Soft, Non-Tender, No Organomegaly, No Distention, No Abnormal Bruit, No Mass, Pelvis Stable Extremities: Normal Inspection, Normal Range of Motion, Non-Tender, No Pedal Edema, Normal Capillary Refill Skin: Warm, Dry, Intact Wound/Incisions: Healing Well, Dressing Dry and Intact, No Drainage. No: Erythema Neurological: No New Focal Deficit Psy/Mental Status: Alert, Normal Affect, Normal Mood - Assessment Assessment:: 29 yo s/p POD2 for repeat low-transverse , no complications, progressing well and pain is well controlled - Plan Plan:: Patient seen and examined, doing well overall D/c home today Discharge instructions to be given at bedside Percocet and motrin as needed, as prescribed for pain Pelvic rest x4 weeks Continue PP cares Follow-up in 2 weeks <Lorenza Miranda - Last Filed: 02/28/20 08:42> - Patient Data Vital Signs - Most Recent: Last Vital Signs Temp 36.5 C 02/28/20 08:00 Pulse 73 02/28/20 08:00 Resp 18 02/28/20 08:00 BP 116/68 02/28/20 08:00 Pulse Ox 96 02/28/20 08:00 Med Orders - Current: Current Medications Al Hydroxide/Mg Hydroxide (Mag-Al Plus) 30 ml PO Q8H PRN PRN Reason: Heartburn Bisacodyl (Dulcolax) 10 mg RECTAL ONETIME PRN PRN Reason: Constipation Diphenhydramine HCl (Benadryl) 25 mg IVPUSH Q6H PRN PRN Reason: Itching or Nausea Docusate Sodium (Colace) 100 mg PO BID [facility] Last Admin: 02/28/20 08:13 Dose: 100 mg Documented by: Emollient Ointment (Lansinoh Hpa) 0 gm TOP ASDIRECTED PRN PRN Reason: Sore Nipples Oxytocin/Sodium Chloride (Oxytocin 30 Unit/500 Ml-Ns) 30 unit in 500 mls @ 250 mls/hr IV TITRATE [facility] Lactated Ringer's (Ringers, Lactated) 1,000 mls @ 500 mls/hr IV BOLUS [facility] Last Admin: 02/26/20 05:55 Dose: 500 mls/hr Documented by: Lactated Ringer's (Ringers, Lactated) 1,000 mls @ 125 mls/hr IV ASDIRECTED [facility] Last Admin: 02/26/20 20:32 Dose: 125 mls/hr Documented by: Tranexamic Acid 1,000 mg/ (Sodium Chloride) 110 mls @ 660 mls/hr IV ONETIME PRN PRN Reason: Bleeding Ibuprofen (Motrin) 800 mg PO Q8H PRN PRN Reason: mild pain or fever Last Admin: 02/28/20 08:12 Dose: 800 mg Documented by: Methylergonovine Maleate (Methergine) 0.2 mg IM ONETIME PRN PRN Reason: Excessive Vaginal Bleeding Misoprostol (Cytotec) 1,000 mcg RECTAL ONETIME PRN PRN Reason: excessive bleeding Ondansetron HCl (Zofran) 4 mg IVPUSH Q4H PRN PRN Reason: Nausea/Vomiting Oxycodone/Acetaminophen (Percocet 325-5 Mg) 1 tab PO ONETIME PRN PRN Reason: Pain (moderate 4-6) Oxycodone/Acetaminophen (Percocet 325-5 Mg) 1 tab PO Q4H PRN PRN Reason: Pain (moderate 4-6) Last Admin: 02/27/20 17:23 Dose: 1 tab Documented by: Oxycodone/Acetaminophen (Percocet 325-5 Mg) 2 tab PO Q4H PRN PRN Reason: Pain (moderate 4-6) Last Admin: 02/28/20 03:59 Dose: 2 tab Documented by: Oxytocin (Pitocin) 10 unit IM ASDIRECTED PRN PRN Reason: Excessive Vaginal Bleeding Simethicone (Simethicone) 160 mg PO QID [facility] Last Admin: 02/28/20 06:12 Dose: 160 mg Documented by: Sodium Chloride (Saline Flush) 10 ml FLUSH ASDIRECTED PRN PRN Reason: Keep Vein Open Sodium Chloride (Saline Flush) 2.5 ml FLUSH ASDIRECTED PRN PRN Reason: Keep Vein Open Sodium Chloride (Normal Saline) 10 ml IV ASDIRECTED PRN PRN Reason: IV Use Discontinued Medications Cefazolin Sodium (Ancef) Confirm Administered Dose 2 gm .ROUTE .STK-MED ONE Stop: 02/26/20 08:14 Citric Acid/Sodium Citrate (Bicitra Solution) 30 ml PO ONETIME ONE Stop: 02/26/20 06:08 Last Admin: 02/26/20 07:37 Dose: 30 ml Documented by: Dexamethasone (Dexamethasone) Confirm Administered Dose 20 mg .ROUTE .STK-MED ONE Stop: 02/26/20 07:18 Fentanyl (Sublimaze) Confirm Administered Dose 100 mcg .ROUTE .STK-MED ONE Stop: 02/26/20 07:19 Fentanyl (Sublimaze) 50 mcg IVPUSH Q5M PRN PRN Reason: Pain (severe 7-10) Stop: 02/27/20 07:44 Cefazolin Sodium/Dextrose 2 gm (/ Premix) 50 mls @ 100 mls/hr IV ONETIME ONE Stop: 02/26/20 08:14 Last Admin: 02/26/20 10:56 Dose: Not Given Documented by: Ketorolac Tromethamine (Toradol) Confirm Administered Dose 30 mg .ROUTE .STK-MED ONE Stop: 02/26/20 08:49 Ketorolac Tromethamine (Toradol) 30 mg IVPUSH Q6H [facility] Stop: 02/27/20 09:16 Last Admin: 02/27/20 10:46 Dose: Not Given Documented by: Morphine Sulfate (Duramorph Pf) Confirm Administered Dose 10 mg .ROUTE .STK-MED ONE Stop: 02/26/20 07:20 Nalbuphine HCl (Nubain) 2.5 mg IVPUSH Q3H PRN PRN Reason: Pruritis Stop: 02/27/20 07:44 Ondansetron HCl (Zofran) Confirm Administered Dose 4 mg .ROUTE .STK-MED ONE Stop: 02/26/20 07:18 Oxytocin (Pitocin) Confirm Administered Dose 30 unit .ROUTE .STK-MED ONE Stop: 02/26/20 07:19 Phenylephrine HCl (Julio Cesar-Synephrine) Confirm Administered Dose 10 mg .ROUTE .STK- MED ONE Stop: 02/26/20 07:14 - Problem List & Annotations (1) Status post repeat low transverse section SNOMED Code(s): 964372840, 74980046, 746818752, 954624540, [id number] Code(s): Z98.891 - HISTORY OF UTERINE SCAR FROM PREVIOUS SURGERY Status: Acute Current Visit: Yes - Problem List Review Problem List Initiated/Reviewed/Updated: Yes - My Orders Last 24 Hours: My Active Orders 02/27/20 15:15 Ibuprofen [Motrin] 800 mg PO Q8H PRN - Plan Plan:: Patient seen and examined--agree with above. Doing well overall, VS and labs reassuring. Discharge to home today.
[2020-02-28] MEDS: Ibuprofen 800 MG Tab PO PRN (08:12)
[2020-02-28] MEDS: Docusate Sodium 100 MG Cap PO SCH (08:13)
[2020-02-28 08:34] VITALS: BP 116/68; PULSE 73
== END 2020-02-28 10:40 | disposition home or self-care (01) | DRG 540 ==
LOC: MW.OB 05:26
PROVIDERS: ADMIT Obstetrics & Gynecology; ATTEND Obstetrics & Gynecology
PROC: 10D00Z1 Extraction of Products of Conception, Low, Open Approach (ICD-10-PCS; principal; 2020-02-26)
DX: O34.211 Maternal care for low transverse scar from previous cesarean delivery (principal); Z37.0 Single live birth; O99.214 Obesity complicating childbirth; E66.9 Obesity, unspecified; Z3A.39 39 weeks gestation of pregnancy
CPT/HCPCS: 36415; 51702; 59025; 82803; 85014; 85018; 85027; 86850; 86900; 86901; A9270-GY; J0690; J1100; J1885; J2270; J2370; J2405; J2590; J3010; J7120

== ENCOUNTER 2020-03-24 16:47 | Inpatient (IN) | payer BC, OTHER ==
[2020-03-24] MEDS ORDERED: Lactated Ringers 1,000 ML IV ONE ×2 (17:00→18:19)
[2020-03-24] MEDS ORDERED: Prochlorperazine 10 MG/2 ML SDV IVPUSH ONE (17:00)
[2020-03-24] MEDS ORDERED: Sodium Chloride 0.9% 2.5 ML Syringe FLUSH PRN (17:00)
[2020-03-24] MEDS ORDERED: Ketorolac 15 MG/ML SDV IVPUSH ONE (17:00)
[2020-03-24] MEDS ORDERED: Sodium Chloride 0.9% 10 ML Syringe FLUSH PRN (17:00)
--- NOTE | 2020-03-24 17:08 | EDM.PDOC ---
ED [facility] GENERAL MEDICAL PROBLEM - General Chief Complaint: Abdominal Pain Stated Complaint: UPPER ABDOMINAL PAIN Time Seen by Provider: 03/24/20 16:54 - History of Present Illness INITIAL COMMENTS - FREE TEXT/NARRATIVE: HISTORY AND PHYSICAL: History of present illness: This 29-year-old female is 3 weeks status post delivery from her second child via section. This morning around 3 AM she awoke with generalized abdominal pain more focal in the left upper quadrant similar to previous episodes of diverticulitis. She reports that she had a immediately 3 episodes of watery/diarrhea stools without blood. She took a nap and woke up and was very nauseated tried to eat and vomited. She was not able to hold anything down. She continues to have left upper quadrant pain that she rates as mild to moderate. No hematochezia, hematemesis or melena. Denies any urinary symptoms. Has done very well since her section and is concerned she may have diverticulitis again. Denies other associated signs or symptoms. No other modifying, aggravating or alleviating factors. Review of systems: A 10-point review of systems, other than pertinent positives and negatives as stated per HPI, is otherwise negative. Past medical history: As per history of present illness and as reviewed below otherwise noncontributory. Surgical history: As per history of present illness and as reviewed below otherwise noncontrib utory. Social history: No reported history of drug or alcohol abuse. Family history: As per history of present illness and as reviewed below otherwise noncontributory. Physical exam: VITAL SIGNS: Reviewed. GENERAL: Appears to be in mild distress HEAD: No signs of head trauma. EYES: Pupils are equal. Extraocular motions intact. EARS: Hearing grossly intact. MOUTH: Oropharynx is normal. NECK: No adenopathy, no JVD. CHEST: Chest with clear breath sounds bilaterally. No wheezes, rales, or rhonchi. CARDIAC: Regular rate and rhythm. Normal S1 and S2, without murmurs, gallops, or rubs. VASCULAR: Peripheral pulses normal and equal in all extremities. ABDOMEN: Soft, low transverse incision is well-healing and appropriate. No tenderness there or drainage. Tenderness the left upper quadrant. No rebound or guarding. No CVA tenderness. MUSCULOSKELETAL: Good range of motion of all major joints. Extremities without clubbing, cyanosis or edema. NEUROLOGIC EXAM: Alert and oriented x 3. No focal sensory or motor deficits. Speech normal. Follows commands. PSYCHIATRIC: Mood normal. SKIN: No rash or lesions. Initial Differential Diagnosis & Plan: The differential diagnosis would include appendicitis, cholecystitis, pyelonephritis, pancreatitis, mesenteric infarction, diverticulitis, small bowel obstruction, volvulus, and ACS. We will obtain labs, CT, and give symptomatic control. Given that the patient recently had her child via section we will wave the urine hCG. The patient understands this and is comfortable with this. I have let the repair tech know. Definitive disposition and diagnosis as appropriate pending reevaluation and review of above. LUQ Pain Score (Numeric/FACES): 7 - Related Data Allergies Allergy/AdvReac Type Severity Reaction Status Date / Time No Known Allergies Allergy Verified 03/24/20 16:59 Home Meds: Home Meds Iron 30 mg PO DAILY 02/20/20 [History] Pnv No.95/Ferrous Fum/Folic AC [ Vitamin Tablet] 1 tab PO DAILY 02/20/20 [History] Past Medical History HEENT History: Reports: None Other HEENT History: has upper and lower permanent retainers Cardiovascular History: Reports: None Respiratory History: Reports: None Gastrointestinal History: Reports: Diverticulosis Other Gastrointestinal History: diverticulitis Genitourinary History: Reports: None 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 MAKER History: Reports: Polycystic Ovaries, Musculoskeletal History: Reports: Fracture Neurological History: Reports: None Psychiatric History: Reports: None Endocrine/Metabolic History: Reports: Obesity/BMI 30+ Hematologic History: Reports: Blood Transfusion(s) Other Hematologic History: blood transfusion with 1st c/section Immunologic History: Reports: None Oncologic (Cancer) History: Reports: None Dermatologic History: Reports: None - Infectious Disease History Infectious Disease History: Reports: None - Past Surgical History Head Surgeries/Procedures: Reports: None HEENT Surgical History: Reports: Adenoidectomy, Tonsillectomy Cardiovascular Surgical History: Reports: None Respiratory Surgical History: Reports: None GI Surgical History: Reports: Colonoscopy Female Surgical History: Reports: Section Endocrine Surgical History: Reports: None Neurological Surgical History: Reports: None Musculoskeletal Surgical History: Reports: ORIF Other Musculoskeletal Surgeries/Procedures:: hx of pin fixation of left arm- pin removed Oncologic Surgical History: Reports: None Dermatological Surgical History: Reports: None Social & Family History - Family History Family Medical History: Noncontributory - Tobacco Use Smoking Status *Q: Never Smoker Second Hand Smoke Exposure: No - Caffeine Use Caffeine Use: Reports: Coffee - Recreational Drug Use Recreational Drug Use: No ED ROS GENERAL - Review of Systems Review Of Systems: See Below (noted) ED EXAM, GI/ABD - Physical Exam Exam: See Below (noted) Course - Vital Signs Last Recorded V/S: Last Vital Signs Temp 96.7 F L 03/24/20 16:55 Pulse 105 H 03/24/20 16:55 Resp 17 03/24/20 16:55 BP 150/91 H 03/24/20 16:55 Pulse Ox 97 03/24/20 16:55 - Orders/Labs/Meds Orders: Active Orders 24 hr Category Date Time Status Patient Status [ADT] Routine ADT 03/24/20 18:21 Active Abdomen Ltd [US] Stat Exams 03/24/20 18:22 Ordered CORONAVIRUS COVID-19 PCR PH[facility] Stat Lab 03/24/20 18:22 Ordered LIPASE [CHEM] Stat Lab 03/24/20 17:05 Received Lactated Ringers [Ringers, Lactated] 1,000 ml Med 03/24/20 18:19 Active IV .BOLUS Sodium Chloride 0.9% [Saline Flush] Med 03/24/20 17:00 Active 10 ml FLUSH ASDIRECTED PRN Sodium Chloride 0.9% [Saline Flush] Med 03/24/20 17:00 Active 2.5 ml FLUSH ASDIRECTED PRN Saline Lock Insert [OM.PC] Stat Oth 03/24/20 17:00 Ordered Medication Orders Lactated Ringer's (Ringers, Lactated) 1,000 mls @ 150 mls/hr IV .BOLUS ONE Stop: 03/25/20 00:58 Sodium Chloride (Saline Flush) 10 ml FLUSH ASDIRECTED PRN PRN Reason: Keep Vein Open Last Admin: 03/24/20 17:29 Dose: 10 ml Documented by: REANNA Sodium Chloride (Saline Flush) 2.5 ml FLUSH ASDIRECTED PRN PRN Reason: Keep Vein Open Last Admin: 03/24/20 17:29 Dose: 2.5 ml Documented by: REANNA Labs: Laboratory Tests 03/24/20 03/24/20 03/24/20 Range/Units 17:05 17:05 17:24 WBC 16.79 H (4.0-11.0) K/uL RBC 5.20 (4.30-5.90) M/uL Hgb 15.4 (12.0-16.0) g/dL Hct 44.5 (36.0-46.0) % MCV 85.6 (80.0-98.0) fL MCH 29.6 (27.0-32.0) pg MCHC 34.6 (31.0-37.0) g/dL RDW Std Deviation 38.8 (28.0-62.0) fl RDW Coeff of Courtney 12 (11.0-15.0) % Plt Count 213 (150-400) K/uL MPV 11.10 (7.40-12.00) fL Neut % (Auto) 87.2 H (48.0-80.0) % Lymph % (Auto) 6.6 L (16.0-40.0) % Rooks % (Auto) 5.9 (0.0-15.0) % Eos % (Auto) 0.2 (0.0-7.0) % Baso % (Auto) 0.1 (0.0-1.5) % Neut # (Auto) 14.7 H (1.4-5.7) K/uL Lymph # (Auto) 1.1 (0.6-2.4) K/uL Rooks # (Auto) 1.0 H (0.0-0.8) K/uL Eos # (Auto) 0.0 (0.0-0.7) K/uL Baso # (Auto) 0.0 (0.0-0.1) K/uL Nucleated RBC % 0.0 /100WBC Nucleated RBCs # 0 K/uL Sodium 140 (136-145) mmol/L Potassium 4.2 (3.5-5.1) mmol/L Chloride 102 (98-107) mmol/L Carbon Dioxide 29.3 (21.0-32.0) mmol/L BUN 11 (7.0-18.0) mg/dL Creatinine 0.9 (0.6-1.0) mg/dL Est Cr Clr Drug Dosing 78.21 mL/min Estimated GFR (MDRD) > 60.0 ml/min Glucose 134 H (74-106) mg/dL Calcium 9.4 (8.5-10.1) mg/dL Total Bilirubin 2.1 H (0.2-1.0) mg/dL AST 1140 H (15-37) IU/L ALT 887 H (14-63) IU/L Alkaline Phosphatase 113 (46-116) U/L Total Protein 7.5 (6.4-8.2) g/dL Albumin 4.1 (3.4-5.0) g/dL Globulin 3.4 (2.6-4.0) g/dL Albumin/Globulin Ratio 1.2 (0.9-1.6) Urine Color YELLOW Urine Appearance CLEAR Urine pH 6.5 (5.0-8.0) Ur Specific [place] <= 1.005 (1.001-1.035) Urine Protein NEGATIVE (NEGATIVE) mg/dL Urine Glucose (UA) NEGATIVE (NEGATIVE) mg/dL Urine Ketones NEGATIVE (NEGATIVE) mg/dL Urine Occult Blood MODERATE H (NEGATIVE) Urine Nitrite NEGATIVE (NEGATIVE) Urine Bilirubin NEGATIVE (NEGATIVE) Urine Urobilinogen 0.2 (<2.0) EU/dL Ur Leukocyte Esterase TRACE H (NEGATIVE) Urine RBC 1-2 (0-2/HPF) Urine WBC 1-3 (0-5/HPF) Ur Epithelial Cells OCCASIONAL (NONE-FEW) Amorphous Sediment FEW (NEGATIVE) Urine Bacteria FEW (NEGATIVE) Urine Mucus RARE (NONE-MOD) Meds: Medications Generic Name Dose Route Start Last Admin Trade Name Freq PRN Reason Stop Dose Admin Lactated Ringer's 1,000 mls @ 150 mls/hr 03/24/20 18:19 Ringers, Lactated IV 03/25/20 00:58 .BOLUS ONE Sodium Chloride 10 ml 03/24/20 17:00 03/24/20 17:29 Saline Flush FLUSH 10 ml ASDIRECTED PRN Administration Keep Vein Open Sodium Chloride 2.5 ml 03/24/20 17:00 03/24/20 17:29 Saline Flush FLUSH 2.5 ml ASDIRECTED PRN Administration Keep Vein Open Discontinued Medications Generic Name Dose Route Start Last Admin Trade Name Freq PRN Reason Stop Dose Admin Hydromorphone HCl 1 mg 03/24/20 18:18 Dilaudid IVPUSH 03/24/20 18:19 ONETIME ONE Lactated Ringer's 1,000 mls @ 999 mls/hr 03/24/20 17:00 03/24/20 17:29 Ringers, Lactated IV 03/24/20 18:00 999 mls/hr .BOLUS ONE Administration Ketorolac Tromethamine 15 mg 03/24/20 17:00 03/24/20 17:29 Toradol IVPUSH 03/24/20 17:01 15 mg ONETIME ONE Administration Prochlorperazine Edisylate 10 mg 03/24/20 17:00 03/24/20 17:29 Compazine IVPUSH 03/24/20 17:01 10 mg ONETIME ONE Administration - Re-Assessments/Exams Free Text/Narrative Re-Assessment/Exam: 03/24/20 18:25 CT and clinical presentation consistent with pancreatitis. I went back and talked to the patient about her and she admits to binge drinking previous to this. About 2 days ago. She had not drank for a long time and she really overdid it per her report. Given these findings I will add a lipase, and for clarity of diagnosis I will add a limited abdominal ultrasound to ensure there is no evidence of gallstone pancreatitis. I have discussed the case with Dr. Vasquez Burrell, internal medicine, and he will admit the patient for IV pain control, nausea control, and advancement of diet in the setting of pancreatitis My diagnostic impression: 1. Acute pancreatitis 2. Binge drinking 3. 4 weeks Departure - Departure Time of Disposition: 18:27 Disposition: Admitted As Inpatient 64 Clinical Impression: Pancreatitis - Discharge Information *PRESCRIPTION DRUG MONITORING PROGRAM REVIEWED*: Not Applicable *COPY OF PRESCRIPTION DRUG MONITORING REPORT IN PATIENT NIC: Not Applicable Referrals: PCP,None [Primary Care Provider] - Forms: ED Department Discharge Sepsis Event Note (ED) - Evaluation Sepsis Screening Result: No Definite Risk - Focused Exam Vital Signs: Vital Signs Temp Pulse Resp BP Pulse Ox 03/24/20 16:55 96.7 F L 105 H 17 150/91 H 97 - My Orders Last 24 Hours: My Active Orders 03/24/20 17:00 Sodium Chloride 0.9% [Saline Flush] 10 ml FLUSH ASDIRECTED PRN Sodium Chloride 0.9% [Saline Flush] 2.5 ml FLUSH ASDIRECTED PRN Saline Lock Insert [OM.PC] Stat 03/24/20 17:05 LIPASE [CHEM] Stat 03/24/20 18:19 Lactated Ringers [Ringers, Lactated] 1,000 ml IV .BOLUS 03/24/20 18:21 Patient Status [ADT] Routine 03/24/20 18:22 Abdomen Ltd [US] Stat CORONAVIRUS COVID-19 PCR PHL Stat - Assessment/Plan Last 24 Hours: My Active Orders 03/24/20 17:00 Sodium Chloride 0.9% [Saline Flush] 10 ml FLUSH ASDIRECTED PRN Sodium Chloride 0.9% [Saline Flush] 2.5 ml FLUSH ASDIRECTED PRN Saline Lock Insert [OM.PC] Stat 03/24/20 17:05 LIPASE [CHEM] Stat 03/24/20 18:19 Lactated Ringers [Ringers, Lactated] 1,000 ml IV .BOLUS 03/24/20 18:21 Patient Status [ADT] Routine 03/24/20 18:22 Abdomen Ltd [US] Stat CORONAVIRUS COVID-19 PCR PHL Stat
--- NOTE | 2020-03-24 17:37 | CT ---
CT abdomen and pelvis Technique: Multiple axial sections were obtained from above the dome of the diaphragm inferiorly through the pubic symphysis. Intravenous and oral contrast not utilized. Comparison: No previous abdominal imaging is available. Findings: Haziness is noted around the pancreas. Findings raise the possibility of pancreatitis. Visualized lung bases show nothing acute. Fatty infiltration is seen within the liver. Spleen appears within normal limits. Adrenal glands show no nodule. Gallbladder contains no calcified gallstones. Kidneys show no abnormal calcifications. Small cyst is noted within the mid right kidney measuring about 1.1 cm. Aorta shows no aneurysm. No retroperitoneal adenopathy is seen. Appendix is seen which is normal in size. No pelvic mass or adenopathy is appreciated. Bone window settings were reviewed which shows no acute osseous finding. Impression: 1. Haziness around the pancreas suspicious for pancreatitis. Please correlate with lipase and amylase. 2. Fatty infiltration within the liver. 3. Other findings believed to be incidental as noted above. Diagnostic code #3 Study was dictated in MDT
[2020-03-24 17:47] LABS: BLOOD UREA NITROGEN,BUN 11 mg/dL (7.0-18.0); CARBON DIOXIDE,CO2 29.3 mmol/L (21.0-32.0); CHLORIDE,CL 102 mmol/L (98-107); GLUCOSE RANDOM 134 mg/dL (74-106); POTASSIUM,K 4.2 mmol/L (3.5-5.1); SODIUM,NA 140 mmol/L (136-145)
[2020-03-24] MEDS ORDERED: HYDROmorphone 2 MG/ML Syringe IVPUSH ONE (18:18)
[2020-03-24] MEDS ORDERED: Lactated Ringers 2,000 ML IV ONE (20:14)
[2020-03-24] MEDS ORDERED: cefTRIAXone 1 GM in Premix Bag 1 BAG IV ONE (20:18)
--- NOTE | 2020-03-24 20:41 | US ---
Limited abdominal ultrasound: Multiple real-time images of the upper right abdomen were obtained. Comparison: Prior CT abdomen and pelvis exam performed earlier on the same day (5:15 PM). Liver is echogenic compatible with fatty infiltration. Right kidney shows no hydronephrosis or mass. Right kidney has a length of 11.5 cm. Gallbladder shows shadowing within the gallbladder neck compatible with gallstones. No pericholecystic fluid is seen. Common bile duct measures normal in size. Aorta shows no aneurysm. Pancreas is mostly obscured from bowel gas. Impression: 1. Fatty infiltration within the liver. 2. Shadowing gallstones within the gallbladder neck with no pericholecystic fluid or biliary duct dilatation. 3. Pancreas is mostly obscured from bowel gas. Diagnostic code #3 Study was dictated in MDT
--- NOTE | 2020-03-24 20:58 | PCM.HP.2 ---
H&P History of Present Illness - General Date of Service: 03/24/20 Admit Problem/Dx: Admission Diagnosis/Problem Admission Diagnosis/Problem Pancreatitis Source of Information: Patient History Limitations: Reports: No Limitations - History of Present Illness Initial Comments - Free Text/Narative: 29 yr old female admitted to the medical floor for acute pancreatitis. Patient presented to the ED this afternoon with diarrhea, abdominal pain, nausea and one episode of vomiting. Patient stated that she woke up at 3am this morning to feed her child and did not feel well. She had one bout of diarrhea at this time. She went back to sleep, woke up again at 8am to have breakfast at which time she became nauseous and had one episode of vomiting. She then again tried to eat toast but continued to have nausea. Patient returned to sleep, woke up in the early afternoon and stated that she had increasing abdominal pain at which time she decided to go to the ED. Patient has a PMH of diverticulitis. Patient also states that 3 days ago she had an episode of binge drinking. Patient also reports having a poor diet, mostly consuming fast food in the recent weeks. Patient does not take any medications, has not taken Tylenol recently and only takes vitamins. Patient denies fever, chills. SBO, chest pain Onset of Symptoms: Reports: Today Location: Reports: Abdomen Severity: Severe LUQ Pain Score (Numeric/FACES): 2 - Related Data Allergies/Adverse Reactions: Allergies Allergy/AdvReac Type Severity Reaction Status Date / Time No Known Allergies Allergy Verified 03/24/20 19:53 Home Medications: Home Meds Iron 30 mg PO DAILY 02/20/20 [History] Pnv No.95/Ferrous Fum/Folic AC [ Vitamin Tablet] 1 tab PO DAILY 02/20/20 [History] Past Medical History HEENT History: Reports: None Other HEENT History: has upper and lower permanent retainers Cardiovascular History: Reports: None Respiratory History: Reports: None Gastrointestinal History: Reports: Diverticulosis Other Gastrointestinal History: diverticulitis Genitourinary History: Reports: None [employer] History: Reports: Polycystic Ovaries, Musculoskeletal History: Reports: Fracture Neurological History: Reports: None Psychiatric History: Reports: None Endocrine/Metabolic History: Reports: Obesity/BMI 30+ Hematologic History: Reports: Blood Transfusion(s) Other Hematologic History: blood transfusion with 1st c/section Immunologic History: Reports: None Oncologic (Cancer) History: Reports: None Dermatologic History: Reports: None - Infectious Disease History Infectious Disease History: Reports: None - Past Surgical History Head Surgeries/Procedures: Reports: None HEENT Surgical History: Reports: Adenoidectomy, Tonsillectomy Cardiovascular Surgical History: Reports: None Respiratory Surgical History: Reports: None GI Surgical History: Reports: Colonoscopy Female Surgical History: Reports: Section Endocrine Surgical History: Reports: None Neurological Surgical History: Reports: None Musculoskeletal Surgical History: Reports: ORIF Other Musculoskeletal Surgeries/Procedures:: hx of pin fixation of left arm- pin removed Oncologic Surgical History: Reports: None Dermatological Surgical History: Reports: None Social & Family History - Family History Family Medical History: Noncontributory - Tobacco Use Smoking Status *Q: Never Smoker Second Hand Smoke Exposure: No - Caffeine Use Caffeine Use: Reports: Coffee - Alcohol Use Alcohol Use in Last Twelve Months: Yes Alcohol Use Frequency: Socially Alcohol Use Comment: One episode of binge drinking 3 days ago - Recreational Drug Use Recreational Drug Use: No H&P Review of Systems - Review of Systems: Review Of Systems: See Below General: Reports: Fatigue, Decreased Appetite. Denies: Fever, Chills HEENT: Denies: Headaches Pulmonary: Denies: Shortness of Breath, Wheezing, Cough Cardiovascular: Denies: Chest Pain, Palpitations, Dyspnea on Exertion Gastrointestinal: Reports: Abdominal Pain, Diarrhea, Nausea. Denies: Difficulty Swallowing Musculoskeletal: Denies: Shoulder Pain, Arm Pain, Back Pain Psychiatric: Reports: No Symptoms Neurological: Reports: No Symptoms Exam - Exam Exam: See Below - Vital Signs Vital Signs: Last Vital Signs Temp 98.9 F 03/24/20 20:10 Pulse 78 03/24/20 20:10 Resp 12 03/24/20 20:10 BP 135/81 03/24/20 20:10 Pulse Ox 98 03/24/20 20:10 Weight: 214 lb - Exam General: Alert, Oriented, Cooperative HEENT: Conjunctiva Clear, EOMI Neck: Trachea Midline Lungs: Clear to Auscultation, Normal Respiratory Effort Cardiovascular: Regular Rate, Regular Rhythm GI/Abdominal Exam: Normal Bowel Sounds, Soft, Non-Tender, No Distention, Other (Epigastric pain on deep palpatation. No rebound tenderness or guarding noted at any quadrant). No: Distended, Rebound - Patient Data Lab Results Last 24 hrs: Laboratory Results - last 24 hr 03/24/20 03/24/20 03/24/20 Range/Units 17:00 17:02 17:05 WBC 16.79 H (4.0-11.0) K/uL RBC 5.20 (4.30-5.90) M/uL Hgb 15.4 (12.0-16.0) g/dL Hct 44.5 (36.0-46.0) % MCV 85.6 (80.0-98.0) fL MCH 29.6 (27.0-32.0) pg MCHC 34.6 (31.0-37.0) g/dL RDW Std Deviation 38.8 (28.0-62.0) fl RDW Coeff of Courtney 12 (11.0-15.0) % Plt Count 213 (150-400) K/uL MPV 11.10 (7.40-12.00) fL Neut % (Auto) 87.2 H (48.0-80.0) % Lymph % (Auto) 6.6 L (16.0-40.0) % [place] % (Auto) 5.9 (0.0-15.0) % Eos % (Auto) 0.2 (0.0-7.0) % Baso % (Auto) 0.1 (0.0-1.5) % Neut # (Auto) 14.7 H (1.4-5.7) K/uL Lymph # (Auto) 1.1 (0.6-2.4) K/uL [place] # (Auto) 1.0 H (0.0-0.8) K/uL Eos # (Auto) 0.0 (0.0-0.7) K/uL Baso # (Auto) 0.0 (0.0-0.1) K/uL Nucleated RBC % 0.0 /100WBC Nucleated RBCs # 0 K/uL INR 1.09 Lactate (0.20-2.00) mmol/L Sodium (136-145) mmol/L Potassium (3.5-5.1) mmol/L Chloride (98-107) mmol/L Carbon Dioxide (21.0-32.0) mmol/L BUN (7.0-18.0) mg/dL Creatinine (0.6-1.0) mg/dL Est Cr Clr Drug Dosing mL/min Estimated GFR (MDRD) ml/min Glucose (74-106) mg/dL Calcium (8.5-10.1) mg/dL Total Bilirubin (0.2-1.0) mg/dL AST (15-37) IU/L ALT (14-63) IU/L Alkaline Phosphatase (46-116) U/L Total Protein (6.4-8.2) g/dL Albumin (3.4-5.0) g/dL Globulin (2.6-4.0) g/dL Albumin/Globulin Ratio (0.9-1.6) Triglycerides 47 (0-200) mg/dL Cholesterol 171 (50-200) mg/dL LDL Cholesterol, Calc 94 (60-180) mg/dL VLDL Cholesterol 9 (5-55) mg/dL HDL Cholesterol 68 H (40-60) mg/dL Cholesterol/HDL Ratio 2.5 L (3.3-6.0) Lipase (73-393) U/L Urine Color Urine Appearance Urine pH (5.0-8.0) Ur Specific [place] (1.001-1.035) Urine Protein (NEGATIVE) mg/dL Urine Glucose (UA) (NEGATIVE) mg/dL Urine Ketones (NEGATIVE) mg/dL Urine Occult Blood (NEGATIVE) Urine Nitrite (NEGATIVE) Urine Bilirubin (NEGATIVE) Urine Urobilinogen (<2.0) EU/dL Ur Leukocyte Esterase (NEGATIVE) Urine RBC (0-2/HPF) Urine WBC (0-5/HPF) Ur Epithelial Cells (NONE-FEW) Amorphous Sediment (NEGATIVE) Urine Bacteria (NEGATIVE) Urine Mucus (NONE-MOD) SARS Virus RNA (PCR) (NEGATIVE) 03/24/20 03/24/20 03/24/20 Range/Units 17:05 17:05 17:24 WBC (4.0-11.0) K/uL RBC (4.30-5.90) M/uL Hgb (12.0-16.0) g/dL Hct (36.0-46.0) % MCV (80.0-98.0) fL MCH (27.0-32.0) pg MCHC (31.0-37.0) g/dL RDW Std Deviation (28.0-62.0) fl RDW Coeff of Courtney (11.0-15.0) % Plt Count (150-400) K/uL MPV (7.40-12.00) fL Neut % (Auto) (48.0-80.0) % Lymph % (Auto) (16.0-40.0) % [place] % (Auto) (0.0-15.0) % Eos % (Auto) (0.0-7.0) % Baso % (Auto) (0.0-1.5) % Neut # (Auto) (1.4-5.7) K/uL Lymph # (Auto) (0.6-2.4) K/uL [place] # (Auto) (0.0-0.8) K/uL Eos # (Auto) (0.0-0.7) K/uL Baso # (Auto) (0.0-0.1) K/uL Nucleated RBC % /100WBC Nucleated RBCs # K/uL INR Lactate (0.20-2.00) mmol/L Sodium 140 (136-145) mmol/L Potassium 4.2 (3.5-5.1) mmol/L Chloride 102 (98-107) mmol/L Carbon Dioxide 29.3 (21.0-32.0) mmol/L BUN 11 (7.0-18.0) mg/dL Creatinine 0.9 (0.6-1.0) mg/dL Est Cr Clr Drug Dosing 78.21 mL/min Estimated GFR (MDRD) > 60.0 ml/min Glucose 134 H (74-106) mg/dL Calcium 9.4 (8.5-10.1) mg/dL Total Bilirubin 2.1 H (0.2-1.0) mg/dL AST 1140 H (15-37) IU/L ALT 887 H (14-63) IU/L Alkaline Phosphatase 113 (46-116) U/L Total Protein 7.5 (6.4-8.2) g/dL Albumin 4.1 (3.4-5.0) g/dL Globulin 3.4 (2.6-4.0) g/dL Albumin/Globulin Ratio 1.2 (0.9-1.6) Triglycerides (0-200) mg/dL Cholesterol (50-200) mg/dL LDL Cholesterol, Calc (60-180) mg/dL VLDL Cholesterol (5-55) mg/dL HDL Cholesterol (40-60) mg/dL Cholesterol/HDL Ratio (3.3-6.0) Lipase 90473 H (73-393) U/L Urine Color YELLOW Urine Appearance CLEAR Urine pH 6.5 (5.0-8.0) Ur Specific [place] <= 1.005 (1.001-1.035) Urine Protein NEGATIVE (NEGATIVE) mg/dL Urine Glucose (UA) NEGATIVE (NEGATIVE) mg/dL Urine Ketones NEGATIVE (NEGATIVE) mg/dL Urine Occult Blood MODERATE H (NEGATIVE) Urine Nitrite NEGATIVE (NEGATIVE) Urine Bilirubin NEGATIVE (NEGATIVE) Urine Urobilinogen 0.2 (<2.0) EU/dL Ur Leukocyte Esterase TRACE H (NEGATIVE) Urine RBC 1-2 (0-2/HPF) Urine WBC 1-3 (0-5/HPF) Ur Epithelial Cells OCCASIONAL (NONE-FEW) Amorphous Sediment FEW (NEGATIVE) Urine Bacteria FEW (NEGATIVE) Urine Mucus RARE (NONE-MOD) SARS Virus RNA (PCR) (NEGATIVE) 03/24/20 03/24/20 Range/Units 18:31 19:39 WBC (4.0-11.0) K/uL RBC (4.30-5.90) M/uL Hgb (12.0-16.0) g/dL Hct (36.0-46.0) % MCV (80.0-98.0) fL MCH (27.0-32.0) pg MCHC (31.0-37.0) g/dL RDW Std Deviation (28.0-62.0) fl RDW Coeff of Courtney (11.0-15.0) % Plt Count (150-400) K/uL MPV (7.40-12.00) fL Neut % (Auto) (48.0-80.0) % Lymph % (Auto) (16.0-40.0) % [place] % (Auto) (0.0-15.0) % Eos % (Auto) (0.0-7.0) % Baso % (Auto) (0.0-1.5) % Neut # (Auto) (1.4-5.7) K/uL Lymph # (Auto) (0.6-2.4) K/uL [place] # (Auto) (0.0-0.8) K/uL Eos # (Auto) (0.0-0.7) K/uL Baso # (Auto) (0.0-0.1) K/uL Nucleated RBC % /100WBC Nucleated RBCs # K/uL INR Lactate 1.2 (0.20-2.00) mmol/L Sodium (136-145) mmol/L Potassium (3.5-5.1) mmol/L Chloride (98-107) mmol/L Carbon Dioxide (21.0-32.0) mmol/L BUN (7.0-18.0) mg/dL Creatinine (0.6-1.0) mg/dL Est Cr Clr Drug Dosing mL/min Estimated GFR (MDRD) ml/min Glucose (74-106) mg/dL Calcium (8.5-10.1) mg/dL Total Bilirubin (0.2-1.0) mg/dL AST (15-37) IU/L ALT (14-63) IU/L Alkaline Phosphatase (46-116) U/L Total Protein (6.4-8.2) g/dL Albumin (3.4-5.0) g/dL Globulin (2.6-4.0) g/dL Albumin/Globulin Ratio (0.9-1.6) Triglycerides (0-200) mg/dL Cholesterol (50-200) mg/dL LDL Cholesterol, Calc (60-180) mg/dL VLDL Cholesterol (5-55) mg/dL HDL Cholesterol (40-60) mg/dL Cholesterol/HDL Ratio (3.3-6.0) Lipase (73-393) U/L Urine Color Urine Appearance Urine pH (5.0-8.0) Ur Specific [place] (1.001-1.035) Urine Protein (NEGATIVE) mg/dL Urine Glucose (UA) (NEGATIVE) mg/dL Urine Ketones (NEGATIVE) mg/dL Urine Occult Blood (NEGATIVE) Urine Nitrite (NEGATIVE) Urine Bilirubin (NEGATIVE) Urine Urobilinogen (<2.0) EU/dL Ur Leukocyte Esterase (NEGATIVE) Urine RBC (0-2/HPF) Urine WBC (0-5/HPF) Ur Epithelial Cells (NONE-FEW) Amorphous Sediment (NEGATIVE) Urine Bacteria (NEGATIVE) Urine Mucus (NONE-MOD) SARS Virus RNA (PCR) NEGATIVE (NEGATIVE) Result Diagrams: 03/24/20 17:05 03/24/20 17:05 Sepsis Event Note - Evaluation Sepsis Screening Result: No Definite Risk - Focused Exam Vital Signs: Vital Signs Temp Pulse Resp BP BP Pulse Ox 03/24/20 20:10 98.9 F 78 12 135/81 98 03/24/20 16:55 96.7 F L 105 H 17 150/91 H 97 Problem List Initiated/Reviewed/Updated: Yes Orders Last 24hrs: Active Orders 24 hr Category Date Time Status Patient Status [ADT] Routine ADT 03/24/20 18:21 Active Nothing Per Oral Diet [DIET] Diet 03/25/20 Breakfast Active CBC WITH AUTO DIFF [HEME] AM Lab 03/25/20 05:11 Ordered COMPREHENSIVE METABOLIC PN,CMP [CHEM] AM Lab 03/25/20 05:11 Ordered CULTURE URINE [RM] Routine Lab 03/24/20 17:24 Received HEPATITIS PANEL (4) [REF] Routine Lab 03/24/20 19:39 Received HYDROmorphone [Dilaudid] Med 03/24/20 20:36 Ordered 0.5 mg IVPUSH Q3H PRN Lactated Ringers [Ringers, Lactated] 1,000 ml Med 03/24/20 22:14 Active IV ASDIRECTED Lactated Ringers [Ringers, Lactated] 2,000 ml Med 03/24/20 20:14 Ordered IV .BOLUS Sodium Chloride 0.9% [Saline Flush] Med 03/24/20 17:00 Active 10 ml FLUSH ASDIRECTED PRN Sodium Chloride 0.9% [Saline Flush] Med 03/24/20 17:00 Active 2.5 ml FLUSH ASDIRECTED PRN Saline Lock Insert [OM.PC] Stat Oth 03/24/20 17:00 Ordered Code Status [Resuscitation Status] Routine Resus Stat 03/24/20 20:44 Ordered Medication Orders Hydromorphone HCl (Dilaudid) 0.5 mg IVPUSH Q3H PRN PRN Reason: Abdominal Pain Lactated Ringer's (Ringers, Lactated) 2,000 mls @ 999 mls/hr IV .BOLUS ONE Stop: 03/24/20 22:14 Last Admin: 03/24/20 20:24 Dose: 999 mls/hr Documented by: CHRIS Lactated Ringer's (Ringers, Lactated) 1,000 mls @ 200 mls/hr IV ASDIRECTED LENNOX Sodium Chloride (Saline Flush) 10 ml FLUSH ASDIRECTED PRN PRN Reason: Keep Vein Open Last Admin: 03/24/20 17:29 Dose: 10 ml Documented by: REANNA Sodium Chloride (Saline Flush) 2.5 ml FLUSH ASDIRECTED PRN PRN Reason: Keep Vein Open Last Admin: 03/24/20 17:29 Dose: 2.5 ml Documented by: REANNA Acute Pancreatitis- Patient started on 2L LR Bolus. After bolus patient started on 200mls/hr LR. 0.5mg Dilaudid Q3HR for pain control. NPO for diet. Zofran 4mg Q4hr PRN. Lipid panel, US/Abdo ordered to rule out other causes common causes of pancreatitis to include gallstones and elevated lipids. Hep panel ordered due to elevated Transaminases. INR, AM CMP, CBC. UTI- Urine culture ordered, patient given 1g q24hr Ceftriaxone. AM CBC to monitor WBC.
[2020-03-24] MEDS ORDERED: Ondansetron 4 MG/2 ML SDV IVPUSH PRN (21:11)
[2020-03-24] MEDS: HYDROmorphone 1 MG/ML Syringe IVPUSH PRN (23:24)
[2020-03-24] MEDS: Lactated Ringers 1,000 ML IV SCH (23:24)
[2020-03-25] MEDS: HYDROmorphone 1 MG/ML Syringe IVPUSH PRN ×3 (03:00→11:56)
[2020-03-25] MEDS: Lactated Ringers 1,000 ML IV SCH ×5 (04:13→23:44)
[2020-03-25 06:23] LABS: BLOOD UREA NITROGEN,BUN 11 mg/dL (7.0-18.0); CARBON DIOXIDE,CO2 28.7 mmol/L (21.0-32.0); CHLORIDE,CL 106 mmol/L (98-107); GLUCOSE RANDOM 103 mg/dL (74-106); POTASSIUM,K 4.2 mmol/L (3.5-5.1); SODIUM,NA 143 mmol/L (136-145)
[2020-03-25 06:37] LABS: LIPASE 4060 U/L (73-393)
--- NOTE | 2020-03-25 11:23 | PCM.PN ---
- General Info Date of Service: 03/25/20 Functional Status: Reports: Pain Controlled - Review of Systems General: Denies: Fever, Weakness, Chills HEENT: Denies: Headaches, Visual Changes Pulmonary: Denies: Shortness of Breath, Pleuritic Chest Pain, Cough Cardiovascular: Denies: Chest Pain, Palpitations, Orthopnea Gastrointestinal: Reports: Decreased Appetite. Denies: Abdominal Pain, Nausea, Vomiting Musculoskeletal: Denies: Back Pain Neurological: Denies: Confusion, Dizziness, Headache - Patient Data Vitals - Most Recent: Last Vital Signs Temp 99.5 F 03/25/20 07:07 Pulse 98 03/25/20 07:07 Resp 18 03/25/20 07:07 BP 141/88 H 03/25/20 07:07 Pulse Ox 95 03/25/20 07:07 Weight - Most Recent: 214 lb I&O - Last 24 Hours: Intake & Output 03/24/20 03/25/20 03/25/20 22:59 06:59 14:59 Intake Total 4050 Output Total 400 Balance 3650 Lab Results Last 24 Hours: Laboratory Results - last 24 hr 03/24/20 03/24/20 03/24/20 Range/Units 17:00 17:02 17:05 WBC 16.79 H (4.0-11.0) K/uL RBC 5.20 (4.30-5.90) M/uL Hgb 15.4 (12.0-16.0) g/dL Hct 44.5 (36.0-46.0) % MCV 85.6 (80.0-98.0) fL MCH 29.6 (27.0-32.0) pg MCHC 34.6 (31.0-37.0) g/dL RDW Std Deviation 38.8 (28.0-62.0) fl RDW Coeff of Courtney 12 (11.0-15.0) % Plt Count 213 (150-400) K/uL MPV 11.10 (7.40-12.00) fL Neut % (Auto) 87.2 H (48.0-80.0) % Lymph % (Auto) 6.6 L (16.0-40.0) % [place] % (Auto) 5.9 (0.0-15.0) % Eos % (Auto) 0.2 (0.0-7.0) % Baso % (Auto) 0.1 (0.0-1.5) % Neut # (Auto) 14.7 H (1.4-5.7) K/uL Lymph # (Auto) 1.1 (0.6-2.4) K/uL [place] # (Auto) 1.0 H (0.0-0.8) K/uL Eos # (Auto) 0.0 (0.0-0.7) K/uL Baso # (Auto) 0.0 (0.0-0.1) K/uL Nucleated RBC % 0.0 /100WBC Nucleated RBCs # 0 K/uL INR 1.09 Lactate (0.20-2.00) mmol/L Sodium (136-145) mmol/L Potassium (3.5-5.1) mmol/L Chloride (98-107) mmol/L Carbon Dioxide (21.0-32.0) mmol/L BUN (7.0-18.0) mg/dL Creatinine (0.6-1.0) mg/dL Est Cr Clr Drug Dosing mL/min Estimated GFR (MDRD) ml/min Glucose (74-106) mg/dL Calcium (8.5-10.1) mg/dL Total Bilirubin (0.2-1.0) mg/dL AST (15-37) IU/L ALT (14-63) IU/L Alkaline Phosphatase (46-116) U/L Total Protein (6.4-8.2) g/dL Albumin (3.4-5.0) g/dL Globulin (2.6-4.0) g/dL Albumin/Globulin Ratio (0.9-1.6) Triglycerides 47 (0-200) mg/dL Cholesterol 171 (50-200) mg/dL LDL Cholesterol, Calc 94 (60-180) mg/dL VLDL Cholesterol 9 (5-55) mg/dL HDL Cholesterol 68 H (40-60) mg/dL Cholesterol/HDL Ratio 2.5 L (3.3-6.0) Lipase (73-393) U/L Urine Color Urine Appearance Urine pH (5.0-8.0) Ur Specific [place] (1.001-1.035) Urine Protein (NEGATIVE) mg/dL Urine Glucose (UA) (NEGATIVE) mg/dL Urine Ketones (NEGATIVE) mg/dL Urine Occult Blood (NEGATIVE) Urine Nitrite (NEGATIVE) Urine Bilirubin (NEGATIVE) Urine Urobilinogen (<2.0) EU/dL Ur Leukocyte Esterase (NEGATIVE) Urine RBC (0-2/HPF) Urine WBC (0-5/HPF) Ur Epithelial Cells (NONE-FEW) Amorphous Sediment (NEGATIVE) Urine Bacteria (NEGATIVE) Urine Mucus (NONE-MOD) Acetaminophen ug/mL SARS Virus RNA (PCR) (NEGATIVE) 03/24/20 03/24/20 03/24/20 Range/Units 17:05 17:05 17:24 WBC (4.0-11.0) K/uL RBC (4.30-5.90) M/uL Hgb (12.0-16.0) g/dL Hct (36.0-46.0) % MCV (80.0-98.0) fL MCH (27.0-32.0) pg MCHC (31.0-37.0) g/dL RDW Std Deviation (28.0-62.0) fl RDW Coeff of Courtney (11.0-15.0) % Plt Count (150-400) K/uL MPV (7.40-12.00) fL Neut % (Auto) (48.0-80.0) % Lymph % (Auto) (16.0-40.0) % [place] % (Auto) (0.0-15.0) % Eos % (Auto) (0.0-7.0) % Baso % (Auto) (0.0-1.5) % Neut # (Auto) (1.4-5.7) K/uL Lymph # (Auto) (0.6-2.4) K/uL [place] # (Auto) (0.0-0.8) K/uL Eos # (Auto) (0.0-0.7) K/uL Baso # (Auto) (0.0-0.1) K/uL Nucleated RBC % /100WBC Nucleated RBCs # K/uL INR Lactate (0.20-2.00) mmol/L Sodium 140 (136-145) mmol/L Potassium 4.2 (3.5-5.1) mmol/L Chloride 102 (98-107) mmol/L Carbon Dioxide 29.3 (21.0-32.0) mmol/L BUN 11 (7.0-18.0) mg/dL Creatinine 0.9 (0.6-1.0) mg/dL Est Cr Clr Drug Dosing 78.21 mL/min Estimated GFR (MDRD) > 60.0 ml/min Glucose 134 H (74-106) mg/dL Calcium 9.4 (8.5-10.1) mg/dL Total Bilirubin 2.1 H (0.2-1.0) mg/dL AST 1140 H (15-37) IU/L ALT 887 H (14-63) IU/L Alkaline Phosphatase 113 (46-116) U/L Total Protein 7.5 (6.4-8.2) g/dL Albumin 4.1 (3.4-5.0) g/dL Globulin 3.4 (2.6-4.0) g/dL Albumin/Globulin Ratio 1.2 (0.9-1.6) Triglycerides (0-200) mg/dL Cholesterol (50-200) mg/dL LDL Cholesterol, Calc (60-180) mg/dL VLDL Cholesterol (5-55) mg/dL HDL Cholesterol (40-60) mg/dL Cholesterol/HDL Ratio (3.3-6.0) Lipase 34092 H (73-393) U/L Urine Color YELLOW Urine Appearance CLEAR Urine pH 6.5 (5.0-8.0) Ur Specific [place] <= 1.005 (1.001-1.035) Urine Protein NEGATIVE (NEGATIVE) mg/dL Urine Glucose (UA) NEGATIVE (NEGATIVE) mg/dL Urine Ketones NEGATIVE (NEGATIVE) mg/dL Urine Occult Blood MODERATE H (NEGATIVE) Urine Nitrite NEGATIVE (NEGATIVE) Urine Bilirubin NEGATIVE (NEGATIVE) Urine Urobilinogen 0.2 (<2.0) EU/dL Ur Leukocyte Esterase TRACE H (NEGATIVE) Urine RBC 1-2 (0-2/HPF) Urine WBC 1-3 (0-5/HPF) Ur Epithelial Cells OCCASIONAL (NONE-FEW) Amorphous Sediment FEW (NEGATIVE) Urine Bacteria FEW (NEGATIVE) Urine Mucus RARE (NONE-MOD) Acetaminophen ug/mL SARS Virus RNA (PCR) (NEGATIVE) 03/24/20 03/24/20 03/24/20 Range/Units 18:31 19:39 19:39 WBC (4.0-11.0) K/uL RBC (4.30-5.90) M/uL Hgb (12.0-16.0) g/dL Hct (36.0-46.0) % MCV (80.0-98.0) fL MCH (27.0-32.0) pg MCHC (31.0-37.0) g/dL RDW Std Deviation (28.0-62.0) fl RDW Coeff of Courtney (11.0-15.0) % Plt Count (150-400) K/uL MPV (7.40-12.00) fL Neut % (Auto) (48.0-80.0) % Lymph % (Auto) (16.0-40.0) % [place] % (Auto) (0.0-15.0) % Eos % (Auto) (0.0-7.0) % Baso % (Auto) (0.0-1.5) % Neut # (Auto) (1.4-5.7) K/uL Lymph # (Auto) (0.6-2.4) K/uL [place] # (Auto) (0.0-0.8) K/uL Eos # (Auto) (0.0-0.7) K/uL Baso # (Auto) (0.0-0.1) K/uL Nucleated RBC % /100WBC Nucleated RBCs # K/uL INR Lactate 1.2 (0.20-2.00) mmol/L Sodium (136-145) mmol/L Potassium (3.5-5.1) mmol/L Chloride (98-107) mmol/L Carbon Dioxide (21.0-32.0) mmol/L BUN (7.0-18.0) mg/dL Creatinine (0.6-1.0) mg/dL Est Cr Clr Drug Dosing mL/min Estimated GFR (MDRD) ml/min Glucose (74-106) mg/dL Calcium (8.5-10.1) mg/dL Total Bilirubin (0.2-1.0) mg/dL AST (15-37) IU/L ALT (14-63) IU/L Alkaline Phosphatase (46-116) U/L Total Protein (6.4-8.2) g/dL Albumin (3.4-5.0) g/dL Globulin (2.6-4.0) g/dL Albumin/Globulin Ratio (0.9-1.6) Triglycerides (0-200) mg/dL Cholesterol (50-200) mg/dL LDL Cholesterol, Calc (60-180) mg/dL VLDL Cholesterol (5-55) mg/dL HDL Cholesterol (40-60) mg/dL Cholesterol/HDL Ratio (3.3-6.0) Lipase (73-393) U/L Urine Color Urine Appearance Urine pH (5.0-8.0) Ur Specific [place] (1.001-1.035) Urine Protein (NEGATIVE) mg/dL Urine Glucose (UA) (NEGATIVE) mg/dL Urine Ketones (NEGATIVE) mg/dL Urine Occult Blood (NEGATIVE) Urine Nitrite (NEGATIVE) Urine Bilirubin (NEGATIVE) Urine Urobilinogen (<2.0) EU/dL Ur Leukocyte Esterase (NEGATIVE) Urine RBC (0-2/HPF) Urine WBC (0-5/HPF) Ur Epithelial Cells (NONE-FEW) Amorphous Sediment (NEGATIVE) Urine Bacteria (NEGATIVE) Urine Mucus (NONE-MOD) Acetaminophen <2.0 ug/mL SARS Virus RNA (PCR) NEGATIVE (NEGATIVE) 03/25/20 03/25/20 Range/Units 05:09 05:09 WBC 13.33 H (4.0-11.0) K/uL RBC 4.55 (4.30-5.90) M/uL Hgb 13.0 (12.0-16.0) g/dL Hct 39.5 (36.0-46.0) % MCV 86.8 (80.0-98.0) fL MCH 28.6 (27.0-32.0) pg MCHC 32.9 (31.0-37.0) g/dL RDW Std Deviation 40.6 (28.0-62.0) fl RDW Coeff of Courtney 13 (11.0-15.0) % Plt Count 189 (150-400) K/uL MPV 11.10 (7.40-12.00) fL Neut % (Auto) 89.1 H (48.0-80.0) % Lymph % (Auto) 6.8 L (16.0-40.0) % [place] % (Auto) 3.5 (0.0-15.0) % Eos % (Auto) 0.5 (0.0-7.0) % Baso % (Auto) 0.1 (0.0-1.5) % Neut # (Auto) 11.9 H (1.4-5.7) K/uL Lymph # (Auto) 0.9 (0.6-2.4) K/uL [place] # (Auto) 0.5 (0.0-0.8) K/uL Eos # (Auto) 0.1 (0.0-0.7) K/uL Baso # (Auto) 0.0 (0.0-0.1) K/uL Nucleated RBC % 0.0 /100WBC Nucleated RBCs # 0 K/uL INR Lactate (0.20-2.00) mmol/L Sodium 143 (136-145) mmol/L Potassium 4.2 (3.5-5.1) mmol/L Chloride 106 (98-107) mmol/L Carbon Dioxide 28.7 (21.0-32.0) mmol/L BUN 11 (7.0-18.0) mg/dL Creatinine 0.9 (0.6-1.0) mg/dL Est Cr Clr Drug Dosing 78.21 mL/min Estimated GFR (MDRD) > 60.0 ml/min Glucose 103 (74-106) mg/dL Calcium 8.4 L (8.5-10.1) mg/dL Total Bilirubin 2.1 H (0.2-1.0) mg/dL AST 707 H (15-37) IU/L ALT 903 H (14-63) IU/L Alkaline Phosphatase 106 (46-116) U/L Total Protein 6.0 L (6.4-8.2) g/dL Albumin 3.2 L (3.4-5.0) g/dL Globulin 2.8 (2.6-4.0) g/dL Albumin/Globulin Ratio 1.1 (0.9-1.6) Triglycerides (0-200) mg/dL Cholesterol (50-200) mg/dL LDL Cholesterol, Calc (60-180) mg/dL VLDL Cholesterol (5-55) mg/dL HDL Cholesterol (40-60) mg/dL Cholesterol/HDL Ratio (3.3-6.0) Lipase 4060 H (73-393) U/L Urine Color Urine Appearance Urine pH (5.0-8.0) Ur Specific [place] (1.001-1.035) Urine Protein (NEGATIVE) mg/dL Urine Glucose (UA) (NEGATIVE) mg/dL Urine Ketones (NEGATIVE) mg/dL Urine Occult Blood (NEGATIVE) Urine Nitrite (NEGATIVE) Urine Bilirubin (NEGATIVE) Urine Urobilinogen (<2.0) EU/dL Ur Leukocyte Esterase (NEGATIVE) Urine RBC (0-2/HPF) Urine WBC (0-5/HPF) Ur Epithelial Cells (NONE-FEW) Amorphous Sediment (NEGATIVE) Urine Bacteria (NEGATIVE) Urine Mucus (NONE-MOD) Acetaminophen ug/mL SARS Virus RNA (PCR) (NEGATIVE) Med Orders - Current: Current Medications Hydromorphone HCl (Dilaudid) 0.5 mg IVPUSH Q3H PRN PRN Reason: Abdominal Pain Last Admin: 03/25/20 07:06 Dose: 0.5 mg Documented by: Lactated Ringer's (Ringers, Lactated) 1,000 mls @ 250 mls/hr IV ASDIRECTED LENNOX Last Admin: 03/25/20 09:15 Dose: 200 mls/hr Documented by: Ondansetron HCl (Zofran) 4 mg IVPUSH Q4H PRN PRN Reason: Nausea/Vomiting Sodium Chloride (Saline Flush) 10 ml FLUSH ASDIRECTED PRN PRN Reason: Keep Vein Open Last Admin: 03/24/20 17:29 Dose: 10 ml Documented by: Sodium Chloride (Saline Flush) 2.5 ml FLUSH ASDIRECTED PRN PRN Reason: Keep Vein Open Last Admin: 03/24/20 17:29 Dose: 2.5 ml Documented by: Discontinued Medications Hydromorphone HCl (Dilaudid) 1 mg IVPUSH ONETIME ONE Stop: 03/24/20 18:19 Last Admin: 03/24/20 19:43 Dose: 1 mg Documented by: Lactated Ringer's (Ringers, Lactated) 1,000 mls @ 999 mls/hr IV .BOLUS ONE Stop: 03/24/20 18:00 Last Admin: 03/24/20 17:29 Dose: 999 mls/hr Documented by: Lactated Ringer's (Ringers, Lactated) 1,000 mls @ 150 mls/hr IV .BOLUS ONE Stop: 03/25/20 00:58 Last Admin: 03/24/20 19:45 Dose: 150 mls/hr Documented by: Lactated Ringer's (Ringers, Lactated) 2,000 mls @ 999 mls/hr IV .BOLUS ONE Stop: 03/24/20 22:14 Last Admin: 03/24/20 20:24 Dose: 999 mls/hr Documented by: Ceftriaxone Sodium/Dextrose 1 (gm/ Premix) 50 mls @ 100 mls/hr IV ONETIME ONE Stop: 03/24/20 20:47 Last Admin: 03/24/20 21:31 Dose: 100 mls/hr Documented by: Ketorolac Tromethamine (Toradol) 15 mg IVPUSH ONETIME ONE Stop: 03/24/20 17:01 Last Admin: 03/24/20 17:29 Dose: 15 mg Documented by: Prochlorperazine Edisylate (Compazine) 10 mg IVPUSH ONETIME ONE Stop: 03/24/20 17:01 Last Admin: 03/24/20 17:29 Dose: 10 mg Documented by: - Exam General: Alert, Oriented, Cooperative HEENT: EOMI Neck: Trachea Midline Lungs: Clear to Auscultation, Normal Respiratory Effort. No: Crackles, Wheezing Cardiovascular: Regular Rate, Regular Rhythm GI/Abdominal Exam: Soft, Non-Tender, No Distention. No: Guarding, Rebound, Tender Extremities: Normal Range of Motion, No Pedal Edema Skin: Warm, Dry Psy/Mental Status: Alert, Normal Affect Sepsis Event Note - Evaluation Sepsis Screening Result: No Definite Risk - Focused Exam Vital Signs: Vital Signs Temp Pulse Resp BP Pulse Ox 03/25/20 07:07 99.5 F 98 18 141/88 H 95 03/25/20 03:05 100 F 113 H 12 145/80 H 95 03/24/20 23:29 99.6 F 92 13 142/86 H 97 - Problem List Review Problem List Initiated/Reviewed/Updated: Yes - My Orders Last 24 Hours: My Active Orders 03/24/20 17:24 CULTURE URINE [RM] Routine 03/24/20 19:39 HEPATITIS PANEL (4) [REF] Routine 03/24/20 20:36 HYDROmorphone [Dilaudid] 0.5 mg IVPUSH Q3H PRN 03/24/20 20:44 Code Status [Resuscitation Status] Routine 03/24/20 21:11 Ondansetron [Zofran] 4 mg IVPUSH Q4H PRN 03/24/20 22:14 Lactated Ringers [Ringers, Lactated] 1,000 ml IV ASDIRECTED 03/25/20 Breakfast Nothing Per Oral Diet [DIET] 03/25/20 09:22 Antiembolic Devices [RC] PER UNIT ROUTINE Vital Signs [RC] Q4H SCD [Sequential Compression Device] [OM.PC] Routine - Assessment Assessment:: Acute Pancreatitis- Patient on 250mls/hr LR. 0.5mg Dilaudid Q3HR for pain control. NPO for diet. Zofran 4mg Q4hr PRN. US/Abdo concerning for gallstones in gallbladder neck with no inflammation. Lipase has dropped significantly overnight. Patients pancreatitis most likely caused by gallstones. Will consult general surgery for recommendations. UTI- UA positive for Leukocyte esterase. Urine culture ordered, patient given 1g q24hr Ceftriaxone. Will adjust antibiotics based on UC results. AM CBC to monitor WBC.
[2020-03-25] MEDS ORDERED: cefTRIAXone 1 GM in Premix Bag 1 BAG IV ONE (11:57)
[2020-03-25] MEDS: Ketorolac 15 MG/ML SDV IVPUSH PRN ×2 (16:52→22:51)
[2020-03-26] MEDS: Lactated Ringers 1,000 ML IV SCH ×2 (04:39→10:54)
[2020-03-26 06:19] LABS: BLOOD UREA NITROGEN,BUN 9 mg/dL (7.0-18.0); CARBON DIOXIDE,CO2 26.9 mmol/L (21.0-32.0); CHLORIDE,CL 105 mmol/L (98-107); GLUCOSE RANDOM 83 mg/dL (74-106); LIPASE 840 U/L (73-393); POTASSIUM,K 3.8 mmol/L (3.5-5.1); SODIUM,NA 141 mmol/L (136-145)
--- NOTE | 2020-03-26 08:41 | MR ---
MRI abdomen Technique: Various sequences are obtained in axial and coronal planes. Intravenous contrast was not utilized. MRCP study was also performed. Comparison: Prior CT abdomen and pelvis study performed without contrast with a date of 03/24/20 and right upper quadrant abdominal ultrasound also performed on 03/24/20. Findings: Filling defects are seen within the gallbladder compatible with multiple small gallstones. Liver shows fatty infiltration. Spleen size is enlarged measuring about 18 cm in craniocaudal length. Multiple small cysts are noted within the kidneys. Small amount of fluid seen within the paracolic gutters. Minimal fluid is seen around the pancreas. Adrenal glands show no discrete abnormality. Trace pleural effusions are seen on both sides. Minimal fluid is seen around the liver. MRCP study shows no biliary duct dilatation. No filling defects to indicate choledocholithiasis is seen. Impression: 1. Trace pleural effusions. Mild amount of fluid around the liver as well as minimal fluid within the paracolic gutters. Minimal fluid around the pancreas is seen. 2. Fatty infiltration within the liver. 3. Multiple small gallstones within the gallbladder. No biliary duct dilatation is seen. No filling defects to indicate choledocholithiasis. 4. Spleen appears to be somewhat enlarged with craniocaudal length of 18 cm. 5. Multiple small cysts within both kidneys. Diagnostic code #3 Study was dictated in MDT
--- NOTE | 2020-03-26 09:45 | PCM.SN.2 ---
- Free Text/Narrative Note: pt seen, chart reviewed; classic picture of gallstone pancreatitis; MRCP no CBD stones; mild pleural effusion; preferably start clear liquid late today or tomorrow morning, as enzyme remained elevated; would tentatively schedule surgery this Tuesday, as early surgery may resulted in exacerbate pleural effusion; if dc tomorrow, pls see me in office to schedule surgery; will fu pt with you; [id number]
[2020-03-26] MEDS ORDERED: cefTRIAXone 1 GM in Premix Bag 1 BAG IV SCH (10:45)
[2020-03-26 13:29] VITALS: BP 124/77; PULSE 66
--- NOTE | 2020-03-26 13:44 | CONS ---
DATE OF CONSULTATION: 03/26/2020 DATE OF : 1990 PRIMARY CARE PHYSICIAN: None PCP REASON FOR CONSULTATION: Consult was called. The patient was seen yesterday, but the patient was not available, and the patient was seen this morning. Consulting question is pancreatitis. HISTORY OF PRESENT ILLNESS: The patient is a 29-year-old lady who complained of a 3- to 4-day history of nausea, vomiting, and severe abdominal pain. Pain is in the epigastrium, radiating to the back. Denied jaundice, denied dark urine, denied white stool, and denied prior episode. Pain was 8/10. The patient was admitted through the emergency room and workup included ultrasound and CAT scan, which revealed some stone. No pericholecystic fluid and no ductal dilatation. Lipase was up to 20,000. Surgery was then consulted. Attempted to see the patient yesterday, the patient was not available, and the patient was seen this morning. The patient denied nausea and vomiting, denied abdominal pain, and very happy that the episode has resolved. Denied prior episode. Currently, the patient is hungry. ALLERGIES: Please refer to nursing note for detail. MEDICATIONS: Please refer to nursing note for detail. PAST MEDICAL HISTORY: Significant for no diabetes, [place], CVA, or hypertension. PAST SURGICAL HISTORY: The patient has x2. The patient is about 4 weeks status post C- section. No other abdominal history. FAMILY HISTORY: Noncontributory. PHYSICAL EXAMINATION: GENERAL: A very pleasant lady in no acute distress. HEENT: Normocephalic and atraumatic. Sclerae are anicteric. LUNGS: Clear to auscultation. HEART: Regular rate and rhythm. ABDOMEN: Soft, nondistended. No pulsating tender midline abdominal structure. No surgical scar. No hernia. Right upper quadrant nontender, but expressed not comfortable. LABORATORY DATA: Upon consultation, white count is normal at 8. BUN and creatinine are 9 and 0.8. TBili has dropped from 2.1 to 1.2 and AST and ALT had dropped from 1100 and 900 to 200 and 500. Lipase is 20,000, 4000, and 800. CT imaging report: Possible pancreatitis. No calcified gallstone. Ultrasound report: Fatty infiltrate shadowing stones. No pericholecystic fluid or biliary ductal dilatation. MRI report: Trace pleural effusion. Mild amount of fluid around the liver. Multiple small gallstones within gallbladder. No biliary ductal dilatation. No filling defect, suggest common bile duct stone. Spleen appeared to be somewhat enlarged. Kidney cyst. IMPRESSION: The patient's pancreatic enzyme pattern is classic for gallstone pancreatitis, a spike upward more than 20,000 and return to almost normal in less than 12 hours. This is a classic picture of gallstone pancreatitis. However, the patient also had some drinking about 3 days ago, binge drinking. The patient remarked she does not usually do that. With everything going together, the patient likely had a gallstone pancreatitis, and enzymes while they are coming down and pain is resolved, it is probably alright to put the patient on clear liquid diet, and if tolerated, may consider sending home and follow with me tomorrow in the office and schedule surgery on Tuesday. However, the patient needs to be told in general usually we will keep the patient in the hospital until the gallbladder surgery. If the patient is in town and is a reliable patient, and the patient understands that patients with gallstone could have recurrent pancreatitis at home. If the patient accepted all the facts, the patient can be discharged home. Otherwise, keeping the patient until surgery possibly this Tuesday. The patient also had some pleural effusion. Early gallbladder surgery can exacerbate the situation, so prefer for the whole situation to calm down and then proceed with surgery. Just of note, catching a gallstone in the pancreatic duct or catching a gallstone in the picture of gallstone pancreatitis is only 10%, so 90% of the time the gallstone is not observed. Thanks for consulting the patient and the care of this pleasant patient. We will follow the patient with you. TARA RAMOS /[id number]
--- NOTE | 2020-03-26 15:49 | PCM.DCSUM1 ---
<Umberto Bryan - Last Filed: 03/26/20 15:42> Discharge Summary - Hospital Course Free Text/Narrative:: 29 yr old female admitted to the medical floor for 2 days due to acute pancreatitis caused by gallstones. Patient on admission had lipase of 19,761, AST 1140, ALT 887, Bilirubin 2.1. Patient was admitted to the floor for aggressive fluid therapy, pain control and NPO. Patient had an MRCP which showed cholelithiasis but no choledocholithiasis or sings of biliary duct dilation or inflammation. Dr Colvin was consulted and patient will follow up with him as an outpatient for a cholecystectomy. Patient also discharged home on oral antibiotics as she had an abnormal UA on admission. Patient advised not to consume any fats in her diet as this may aggravate her pancreatitis. Diagnosis: Stroke: No - Discharge Data Discharge Date: 03/26/20 Discharge Disposition: Home, Self-Care 01 Condition: Good - Referral to Home Health Primary Care Physician: PCP None - Patient Summary/Data Consults: Consultations 03/25/20 11:40 Consult to Physician [CONS] Routine - Patient Instructions Diet: Usual Diet as Tolerated, Clear Liquid Diet Activity: As Tolerated Showering/Bathing: May Shower Notify Provider of: Fever, Increased Pain, Swelling and Redness, Nausea and/or Vomiting - Discharge Plan *PRESCRIPTION DRUG MONITORING PROGRAM REVIEWED*: Not Applicable *COPY OF PRESCRIPTION DRUG MONITORING REPORT IN PATIENT NIC: Not Applicable Prescriptions/Med Rec: cephALEXin [Keflex] 500 mg PO BID #4 capsule Home Medications: Home Meds cephALEXin [Keflex] 500 mg PO BID #4 capsule 03/26/20 [Rx] Patient Handouts: Acute Pancreatitis, [id number], Cephalexin tablets or capsules Referrals: Ricardo Colvin MD [Physician] - 03/27/20 1:30 pm Pilar Espinoza NP [Nurse Practitioner] - 04/01/20 3:30 pm (Please arrive 15 minutes early with your identification, insurance cards and your own facemask.) - Discharge Summary/Plan Comment DC Time >30 min.: No - General Info Date of Service: 03/26/20 Subjective Update: Patient states that she feels much better and is ready to go home. She has not required pain medications since the previous night and has tolerated a clear liquid diet today. Patient has discussed surgery with Dr Colvin this morning. - Review of Systems General: Denies: Fever, Weakness, Fatigue HEENT: Denies: Headaches Pulmonary: Denies: Shortness of Breath, Pleuritic Chest Pain, Cough Cardiovascular: Denies: Chest Pain, Dyspnea on Exertion Gastrointestinal: Denies: Abdominal Pain, Decreased Appetite, Diarrhea, Nausea, Vomiting Neurological: Denies: Dizziness, Headache - Patient Data Vitals - Most Recent: Last Vital Signs Temp 98.1 F 03/26/20 12:00 Pulse 66 03/26/20 12:00 Resp 18 03/26/20 12:00 BP 124/77 03/26/20 12:00 Pulse Ox 98 03/26/20 12:00 Weight - Most Recent: 97.069 kg I&O - Last 24 hours: Intake & Output 03/26/20 03/26/20 03/26/20 06:59 14:59 22:59 Intake Total 2900 360 Output Total 1550 1900 Balance 1350 -1540 Lab Results - Last 24 hrs: Laboratory Results - last 24 hr 03/26/20 03/26/20 Range/Units 05:11 05:11 WBC 8.92 (4.0-11.0) K/uL RBC 4.13 L (4.30-5.90) M/uL Hgb 11.9 L (12.0-16.0) g/dL Hct 36.5 (36.0-46.0) % MCV 88.4 (80.0-98.0) fL MCH 28.8 (27.0-32.0) pg MCHC 32.6 (31.0-37.0) g/dL RDW Std Deviation 41.7 (28.0-62.0) fl RDW Coeff of Courtney 13 (11.0-15.0) % Plt Count 152 (150-400) K/uL MPV 11.00 (7.40-12.00) fL Neut % (Auto) 73.5 (48.0-80.0) % Lymph % (Auto) 14.2 L (16.0-40.0) % [place] % (Auto) 7.6 (0.0-15.0) % Eos % (Auto) 4.5 (0.0-7.0) % Baso % (Auto) 0.2 (0.0-1.5) % Neut # (Auto) 6.6 H (1.4-5.7) K/uL Lymph # (Auto) 1.3 (0.6-2.4) K/uL [place] # (Auto) 0.7 (0.0-0.8) K/uL Eos # (Auto) 0.4 (0.0-0.7) K/uL Baso # (Auto) 0.0 (0.0-0.1) K/uL Nucleated RBC % 0.0 /100WBC Nucleated RBCs # 0 K/uL Sodium 141 (136-145) mmol/L Potassium 3.8 (3.5-5.1) mmol/L Chloride 105 (98-107) mmol/L Carbon Dioxide 26.9 (21.0-32.0) mmol/L BUN 9 (7.0-18.0) mg/dL Creatinine 0.8 (0.6-1.0) mg/dL Est Cr Clr Drug Dosing 87.99 mL/min Estimated GFR (MDRD) > 60.0 ml/min Glucose 83 (74-106) mg/dL Calcium 8.4 L (8.5-10.1) mg/dL Total Bilirubin 1.2 H (0.2-1.0) mg/dL AST 221 H (15-37) IU/L ALT 545 H (14-63) IU/L Alkaline Phosphatase 94 (46-116) U/L Total Protein 5.9 L (6.4-8.2) g/dL Albumin 3.0 L (3.4-5.0) g/dL Globulin 2.9 (2.6-4.0) g/dL Albumin/Globulin Ratio 1.0 (0.9-1.6) Lipase 840 H (73-393) U/L ALFREDO Results - Last 24 hrs: Microbiology 03/24/20 17:24 Urine Culture - Final Urine, Bladder MIXED BRYCE >100,000 CFU/ML Med Orders - Current: Current Medications Discontinued Medications Hydromorphone HCl (Dilaudid) 1 mg IVPUSH ONETIME ONE Stop: 03/24/20 18:19 Last Admin: 03/24/20 19:43 Dose: 1 mg Documented by: Hydromorphone HCl (Dilaudid) 0.5 mg IVPUSH Q3H PRN PRN Reason: Abdominal Pain Last Admin: 03/25/20 11:56 Dose: 0.5 mg Documented by: Lactated Ringer's (Ringers, Lactated) 1,000 mls @ 999 mls/hr IV .BOLUS ONE Stop: 03/24/20 18:00 Last Admin: 03/24/20 17:29 Dose: 999 mls/hr Documented by: Lactated Ringer's (Ringers, Lactated) 1,000 mls @ 150 mls/hr IV .BOLUS ONE Stop: 03/25/20 00:58 Last Admin: 03/24/20 19:45 Dose: 150 mls/hr Documented by: Lactated Ringer's (Ringers, Lactated) 2,000 mls @ 999 mls/hr IV .BOLUS ONE Stop: 03/24/20 22:14 Last Admin: 03/24/20 20:24 Dose: 999 mls/hr Documented by: Lactated Ringer's (Ringers, Lactated) 1,000 mls @ 250 mls/hr IV ASDIRECTED [facility] Last Admin: 03/26/20 10:54 Dose: 250 mls/hr Documented by: Ceftriaxone Sodium/Dextrose 1 (gm/ Premix) 50 mls @ 100 mls/hr IV ONETIME ONE Stop: 03/24/20 20:47 Last Admin: 03/24/20 21:31 Dose: 100 mls/hr Documented by: Ceftriaxone Sodium/Dextrose 1 (gm/ Premix) 50 mls @ 100 mls/hr IV ONETIME ONE Stop: 03/25/20 12:26 Last Admin: 03/25/20 12:48 Dose: 100 mls/hr Documented by: Ceftriaxone Sodium/Dextrose 1 (gm/ Premix) 50 mls @ 100 mls/hr IV Q24H [facility] Last Admin: 03/26/20 11:01 Dose: 100 mls/hr Documented by: Ketorolac Tromethamine (Toradol) 15 mg IVPUSH ONETIME ONE Stop: 03/24/20 17:01 Last Admin: 03/24/20 17:29 Dose: 15 mg Documented by: Ketorolac Tromethamine (Toradol) 15 mg IVPUSH Q6H PRN PRN Reason: Pain Stop: 03/30/20 16:00 Last Admin: 03/25/20 22:51 Dose: 15 mg Documented by: Ondansetron HCl (Zofran) 4 mg IVPUSH Q4H PRN PRN Reason: Nausea/Vomiting Prochlorperazine Edisylate (Compazine) 10 mg IVPUSH ONETIME ONE Stop: 03/24/20 17:01 Last Admin: 03/24/20 17:29 Dose: 10 mg Documented by: Sodium Chloride (Saline Flush) 10 ml FLUSH ASDIRECTED PRN PRN Reason: Keep Vein Open Last Admin: 03/24/20 17:29 Dose: 10 ml Documented by: Sodium Chloride (Saline Flush) 2.5 ml FLUSH ASDIRECTED PRN PRN Reason: Keep Vein Open Last Admin: 03/24/20 17:29 Dose: 2.5 ml Documented by: - Exam General: Reports: Alert, Oriented, Cooperative HEENT: Reports: EOMI Neck: Reports: Trachea Midline Lungs: Reports: Clear to Auscultation, Normal Respiratory Effort Cardiovascular: Reports: Regular Rate, Regular Rhythm GI/Abdominal Exam: Normal Bowel Sounds, Soft, Non-Tender. No: Distended, Rigid, Rebound, Tender Extremities: Normal Inspection, Normal Range of Motion, No Pedal Edema Skin: Reports: Warm, Dry Psy/Mental Status: Reports: Alert, Normal Affect <Vasquez Burrell - Last Filed: 03/27/20 19:22> Discharge Summary - Referral to Home Health Primary Care Physician: PCP None - Patient Summary/Data Consults: Consultations 03/25/20 11:40 Consult to Physician [CONS] Routine - Patient Data Vitals - Most Recent: Last Vital Signs Temp 36.7 C 03/26/20 12:00 Pulse 66 03/26/20 12:00 Resp 18 03/26/20 12:00 BP 124/77 03/26/20 12:00 Pulse Ox 98 03/26/20 12:00 Lab Results - Last 24 hrs: Laboratory Results - last 24 hr 03/24/20 Range/Units 19:39 Hepatitis A IgM Ab Negative (Negative) Hep Bs Antigen Negative (Negative) Hep B Core IgM Ab Negative (Negative) Hepatitis C Antibody <0.1 (0.0-0.9) s/co ratio Med Orders - Current: Current Medications Discontinued Medications Hydromorphone HCl (Dilaudid) 1 mg IVPUSH ONETIME ONE Stop: 03/24/20 18:19 Last Admin: 03/24/20 19:43 Dose: 1 mg Documented by: Hydromorphone HCl (Dilaudid) 0.5 mg IVPUSH Q3H PRN PRN Reason: Abdominal Pain Last Admin: 03/25/20 11:56 Dose: 0.5 mg Documented by: Lactated Ringer's (Ringers, Lactated) 1,000 mls @ 999 mls/hr IV .BOLUS ONE Stop: 03/24/20 18:00 Last Admin: 03/24/20 17:29 Dose: 999 mls/hr Documented by: Lactated Ringer's (Ringers, Lactated) 1,000 mls @ 150 mls/hr IV .BOLUS ONE Stop: 03/25/20 00:58 Last Admin: 03/24/20 19:45 Dose: 150 mls/hr Documented by: Lactated Ringer's (Ringers, Lactated) 2,000 mls @ 999 mls/hr IV .BOLUS ONE Stop: 03/24/20 22:14 Last Admin: 03/24/20 20:24 Dose: 999 mls/hr Documented by: Lactated Ringer's (Ringers, Lactated) 1,000 mls @ 250 mls/hr IV ASDIRECTED [facility] Last Admin: 03/26/20 10:54 Dose: 250 mls/hr Documented by: Ceftriaxone Sodium/Dextrose 1 (gm/ Premix) 50 mls @ 100 mls/hr IV ONETIME ONE Stop: 03/24/20 20:47 Last Admin: 03/24/20 21:31 Dose: 100 mls/hr Documented by: Ceftriaxone Sodium/Dextrose 1 (gm/ Premix) 50 mls @ 100 mls/hr IV ONETIME ONE Stop: 03/25/20 12:26 Last Admin: 03/25/20 12:48 Dose: 100 mls/hr Documented by: Ceftriaxone Sodium/Dextrose 1 (gm/ Premix) 50 mls @ 100 mls/hr IV Q24H [facility] Last Admin: 03/26/20 11:01 Dose: 100 mls/hr Documented by: Ketorolac Tromethamine (Toradol) 15 mg IVPUSH ONETIME ONE Stop: 03/24/20 17:01 Last Admin: 03/24/20 17:29 Dose: 15 mg Documented by: Ketorolac Tromethamine (Toradol) 15 mg IVPUSH Q6H PRN PRN Reason: Pain Stop: 03/30/20 16:00 Last Admin: 03/25/20 22:51 Dose: 15 mg Documented by: Ondansetron HCl (Zofran) 4 mg IVPUSH Q4H PRN PRN Reason: Nausea/Vomiting Prochlorperazine Edisylate (Compazine) 10 mg IVPUSH ONETIME ONE Stop: 03/24/20 17:01 Last Admin: 03/24/20 17:29 Dose: 10 mg Documented by: Sodium Chloride (Saline Flush) 10 ml FLUSH ASDIRECTED PRN PRN Reason: Keep Vein Open Last Admin: 03/24/20 17:29 Dose: 10 ml Documented by: Sodium Chloride (Saline Flush) 2.5 ml FLUSH ASDIRECTED PRN PRN Reason: Keep Vein Open Last Admin: 03/24/20 17:29 Dose: 2.5 ml Documented by: - Free Text/Narrative Note: I have seen and evaluated the patient. I have discussed findings and treatment plan with resident. I agree with the assessment and plan as outlined in the following note.
== END 2020-03-26 14:40 | disposition home or self-care (01) | DRG 282 ==
LOC: MW.ED 16:47 → MW.MS 18:21 → UNDOADMIN 18:21
PROVIDERS: ADMIT Internal Medicine; ATTEND Internal Medicine
DX: K85.10 Biliary acute pancreatitis without necrosis or infection (principal); N39.0 Urinary tract infection, site not specified; E66.9 Obesity, unspecified; Z90.89 Acquired absence of other organs; K57.90 Diverticulosis of intestine, part unspecified, without perforation or abscess without bleeding; Z68.36 Body mass index [BMI] 36.0-36.9, adult; Z20.828 Contact with and (suspected) exposure to other viral communicable diseases
CPT/HCPCS: 36415; 51798; 74176; 74176-26; 74181; 74181-26; 76705; 76705-26; 80053; 80061; 80074; 80307; 81001; 83605; 83690; 85025; 85610; 87086; 96361; 96374; 96375; 99283; 99285-25; J0696; J0780; J1170; J1885; J7120; U0002

== ENCOUNTER 2020-03-28 08:16 | Day surgery (SDC) | payer BC ==
[~2020-03-28 08:16] MED LIST: Bupivacaine 25%/EPINEPHrine/PF 30 ML ONE; Lactated Ringers 1,000 ML IV SCH; Midazolam 1 MG/ML 2 ML SDV ONE; Propofol 200 MG/20 ML SDV ONE; ceFAZolin 2 GM in Premix Bag 1 BAG IV ONE; fentaNYL 250 MCG/5 ML SDV ONE
[2020-03-28] MEDS ORDERED: ceFAZolin/Dextrose,Iso-Osmotic 2 GM/50 ML Duplex Bag IV ONE (08:58)
[2020-03-28] MEDS ORDERED: Rocuronium Bromide 50 MG/5 ML Syringe ONE (08:58)
[2020-03-28] MEDS ORDERED: Lidocaine 2% 5 ML SDV ONE (08:58)
[2020-03-28] MEDS ORDERED: Octyl 2-Cyanoacrylate 1 Tube ONE (09:08)
[2020-03-28 09:16] LABS: BLOOD UREA NITROGEN,BUN 10 mg/dL (7.0-18.0); CARBON DIOXIDE,CO2 29.2 mmol/L (21.0-32.0); CHLORIDE,CL 103 mmol/L (98-107); GLUCOSE RANDOM 91 mg/dL (74-106); LIPASE 437 U/L (73-393); SODIUM,NA 143 mmol/L (136-145)
--- NOTE | 2020-03-28 09:37 | PCM.PREANE ---
Preanesthetic Assessment - Anesthesia/Transfusion/Family Hx Anesthesia History: Prior Anesthesia Without Reaction Family History of Anesthesia Reaction: No Transfusion History: Prior Transfusion Without Reaction Intubation History: Unknown - Review of Systems General: No Symptoms Pulmonary: No Symptoms Cardiovascular: No Symptoms Neurological: No Symptoms Other: Reports: None - Physical Assessment NPO Status Date: 03/27/20 Height: 5 ft 4 in Weight: 96.162 kg ASA Class: 2 Mental Status: Alert & Oriented x3 Airway Class: Mallampati = 2 Dentition: Reports: Normal Dentition ROM/Head Extension: Full Lungs: Clear to Auscultation, Normal Respiratory Effort Cardiovascular: Regular Rate, Regular Rhythm - Lab Values: Laboratory Last Values WBC 11.80 K/uL (4.0-11.0) H 03/28/20 08:38 RBC 4.76 M/uL (4.30-5.90) 03/28/20 08:38 Hgb 13.9 g/dL (12.0-16.0) 03/28/20 08:38 Hct 41.9 % (36.0-46.0) 03/28/20 08:38 MCV 88.0 fL (80.0-98.0) 03/28/20 08:38 MCH 29.2 pg (27.0-32.0) 03/28/20 08:38 MCHC 33.2 g/dL (31.0-37.0) 03/28/20 08:38 RDW Std Deviation 40.6 fl (28.0-62.0) 03/28/20 08:38 RDW Coeff of Courtney 13 % (11.0-15.0) 03/28/20 08:38 Plt Count 201 K/uL (150-400) 03/28/20 08:38 MPV 10.30 fL (7.40-12.00) 03/28/20 08:38 Neut % (Auto) 75.3 % (48.0-80.0) 03/28/20 08:38 Lymph % (Auto) 13.1 % (16.0-40.0) L 03/28/20 08:38 [place] % (Auto) 9.2 % (0.0-15.0) 03/28/20 08:38 Eos % (Auto) 2.2 % (0.0-7.0) 03/28/20 08:38 Baso % (Auto) 0.2 % (0.0-1.5) 03/28/20 08:38 Neut # (Auto) 8.9 K/uL (1.4-5.7) H 03/28/20 08:38 Lymph # (Auto) 1.6 K/uL (0.6-2.4) 03/28/20 08:38 [place] # (Auto) 1.1 K/uL (0.0-0.8) H 03/28/20 08:38 Eos # (Auto) 0.3 K/uL (0.0-0.7) 03/28/20 08:38 Baso # (Auto) 0.0 K/uL (0.0-0.1) 03/28/20 08:38 Nucleated RBC % 0.0 /100WBC 03/28/20 08:38 Nucleated RBCs # 0 K/uL 03/28/20 08:38 Urine HCG, Qual NEGATIVE (NEGATIVE) 03/28/20 08:35 - Allergies Allergies/Adverse Reactions: Allergies Allergy/AdvReac Type Severity Reaction Status Date / Time No Known Allergies Allergy Verified 03/27/20 14:15 - Blood Blood Available: No - Anesthesia Plan Pre-Op Medication Ordered: None - Acknowledgements Anesthesia Type Planned: General Anesthesia Pt an Appropriate Candidate for the Planned Anesthesia: Yes Alternatives and Risks of Anesthesia Discussed w Pt/Guardian: Yes Pt/Guardian Understands and Agrees with Anesthesia Plan: Yes Additional Comments: PMH: 1 month post , not nursing, recent pancreatitis PLAN: get PreAnesthesia Questionnaire HEENT History: Reports: Other (See Below) Other HEENT History: has upper and lower permanent retainers Cardiovascular History: Reports: None Respiratory History: Reports: None Gastrointestinal History: Reports: Diverticulosis Other Gastrointestinal History: diverticulitis Genitourinary History: Reports: None ICU TECH History: Reports: Polycystic Ovaries, Musculoskeletal History: Reports: Fracture Other Musculoskeletal History: hx fx arm Neurological History: Reports: None Psychiatric History: Reports: None Endocrine/Metabolic History: Reports: Obesity/BMI 30+ Hematologic History: Reports: Blood Transfusion(s) Other Hematologic History: blood transfusion with 1st c/section Immunologic History: Reports: None Oncologic (Cancer) History: Reports: None Dermatologic History: Reports: None - Infectious Disease History Infectious Disease History: Reports: None - Past Surgical History Head Surgeries/Procedures: Reports: None HEENT Surgical History: Reports: Adenoidectomy, Tonsillectomy Cardiovascular Surgical History: Reports: None Respiratory Surgical History: Reports: None GI Surgical History: Reports: Colonoscopy Female Surgical History: Reports: Section Endocrine Surgical History: Reports: None Neurological Surgical History: Reports: None Musculoskeletal Surgical History: Reports: ORIF Other Musculoskeletal Surgeries/Procedures:: hx of pin fixation of left arm- pin removed Oncologic Surgical History: Reports: None Dermatological Surgical History: Reports: None - SUBSTANCE USE Smoking Status *Q: Never Smoker - HOME MEDS Home Medications: Home Meds cephALEXin [Keflex] 500 mg PO BID #4 capsule 03/26/20 [Rx] - CURRENT (IN HOUSE) MEDS Current Meds: Current Medications Lactated Ringer's (Ringers, Lactated) 1,000 mls @ 125 mls/hr IV ASDIRECTED [place] Discontinued Medications Fentanyl (Sublimaze) Confirm Administered Dose 250 mcg .ROUTE .STK-MED ONE Stop: 03/28/20 07:23 Cefazolin Sodium/Dextrose 2 gm (/ Premix) 50 mls @ 100 mls/hr IV ONETIME ONE Stop: 03/28/20 05:29 Bupivacaine HCl/Epinephrine Bitart (Sensorc Mpf 0.25%-Epi [id number]) Confirm Administered Dose 30 mls @ as directed .ROUTE .STK-MED ONE Stop: 03/28/20 07:40 Midazolam HCl (Versed 1 Mg/Ml) Confirm Administered Dose 2 mg .ROUTE .STK-MED ONE Stop: 03/28/20 07:23 Propofol (Diprivan 20 Ml) Confirm Administered Dose 400 mg .ROUTE .STK-MED ONE Stop: 03/28/20 07:23
[2020-03-28] MEDS ORDERED: diphenhydrAMINE 50 MG/ML SDV ONE (09:42)
[2020-03-28] MEDS ORDERED: Dexamethasone 4 MG/ML 5 ML MDV ONE (09:44)
[2020-03-28] MEDS ORDERED: Ondansetron 4 MG/2 ML SDV ONE (09:44)
[2020-03-28] MEDS ORDERED: Glycopyrrolate 0.2 MG/ML SDV ONE ×2 (10:19→10:38)
[2020-03-28] MEDS ORDERED: fentaNYL 100 MCG/2 ML SDV ONE ×2 (10:34→11:15)
--- NOTE | 2020-03-28 10:59 | PCM.OPNOTE ---
- General Post-Op/Procedure Note Date of Surgery/Procedure: 03/28/20 Operative Procedure(s): lap lashell Findings: gb is yellow and green and severe attached to surrounding omentum suggested chronic cholecystitis; wall is not thickened, TNTC small gallstones; incidental finding possible R inguinal hernia; [id number] Pre Op Diagnosis: gs pancreatitis Post-Op Diagnosis: Same Anesthesia Technique: General ET Tube Primary Surgeon: Ricardo Colvin Pathology: sent Complications: None Condition: Good
[2020-03-28] MEDS ORDERED: Acetaminophen/oxyCODONE 325-10 MG Tab PO PRN (11:02)
[2020-03-28] MEDS ORDERED: Acetaminophen 1,000 MG in Premix Bag 1 BAG IV ONE (11:10)
[2020-03-28] MEDS ORDERED: fentaNYL 100 MCG/2 ML SDV IVPUSH PRN (11:11)
[2020-03-28] MEDS ORDERED: Naloxone 0.4 MG/ML Syringe IVPUSH PRN (11:12)
[2020-03-28] MEDS ORDERED: Atropine 0.1 MG/ML 10 ML Syringe IVPUSH PRN (11:12)
--- NOTE | 2020-03-28 11:24 | PCM.SN.2 ---
- Free Text/Narrative Note: MRCP > no cbd stones; LFT and Lipase is gradually coming down, almost to normal, wbc from 16 to 11; on the morning surgery, denied abd pain/dark urine/white stool; proceed w lap lashell, choleangiogram not indicated
--- NOTE | 2020-03-28 11:33 | PCM.POSTAN ---
POST ANESTHESIA ASSESSMENT - MENTAL STATUS Mental Status: Alert, Oriented - VITAL SIGNS Vital Signs: Last Vital Signs Temp 36.6 C 03/28/20 11:01 Pulse 81 03/28/20 11:27 Resp 18 03/28/20 11:27 BP 133/75 03/28/20 11:27 Pulse Ox 95 03/28/20 11:27 - RESPIRATORY Respiratory Status: Respiratory Rate WNL, Airway Patent, O2 Saturation Stable - CARDIOVASCULAR CV Status: Pulse Rate WNL, Blood Pressure Stable - GASTROINTESTINAL GI Status: No Symptoms - PAIN Pain Score: 2 - POST OP HYDRATION Hydration Status: Adequate & Stable - OBSERVATIONS Free Text/Narrative:: Patient complaint of sore throat. No other anesthesia complications or concerns noted.
--- NOTE | 2020-03-28 11:37 | OR ---
SURGEON: Ricardo Colvin MD DATE OF PROCEDURE: 03/28/2020 PREOPERATIVE DIAGNOSIS: Gallstone pancreatitis. POSTOPERATIVE DIAGNOSIS: Gallstone pancreatitis. PROCEDURE PROPOSED: Laparoscopic cholecystectomy. PROCEDURE PERFORMED: Laparoscopic cholecystectomy. PRIMARY SURGEON: Ricardo Colvin MD COMPLICATIONS: None. FINDINGS: Gallbladder was yellow and green and severely attached to surrounding omentum suggesting chronic cholecystitis. Wall is not thickened. Too numerous to count small gallstones. Incidental finding, possible right inguinal hernia. At the end of surgery, a piece of Surgicel was inserted for hemostasis. PROCEDURE NOTE: The patient was taken to the operating room and placed in the supine position. After the intubation of general endotracheal anesthesia, the patient's abdomen was prepped and draped in the usual sterile fashion. Using [employer], a 12 mm trocar was placed supraumbilically and then followed with pneumoperitoneum. A 5 mm trocar was placed in the epigastrium and two 5 mm trocars placed in the right upper quadrant. The placement of the last three trocars was done under direct video supervision. Upon gaining entrance to the abdominal cavity, an extensive examination was then performed. The gallbladder was located and identified and retracted to the dome of the liver at the triangle of [place]. The cystic duct was clipped three more times and then using the endoscopic clip, was transected with placement of the endoscopic clip and transection was performed with care, ensuring the posterior prong of the instruments were clearly visualized prior to exercising the procedure. The gallbladder was dissected using electrocautery out of the liver bed and then removed using endoscopic bag through the umbilical site. The gallbladder was removed en bloc and there was no bile spillage and this was then followed with extensive irrigation until the bile was clear from blood and bile. The trocars were then removed under direct video supervision. The 12 mm umbilical site was then closed with deep stitches using 0 Vicryl followed with proximal stitches using 3-0 Vicryl and Dermabond. The other three trocar sites were closed with 3-0 Vicryl followed with approximation of skin with Dermabond. The patient was then awakened and extubated and transferred to the recovery room in hemodynamically stable condition. At the conclusion of the surgery, before closing the abdominal wound, instrument count and sponge count were done and were correct. The patient tolerated the procedure well and there were no intraoperative complications. Dr. Colvin was present through the whole procedure. Just before surgery, a timeout was called. The patient was identified and procedure identified and procedure started. Intraoperative findings as dictated above. At the end of surgery, a piece of Surgicel was inserted for hemostasis. TARA RAMOS /[id number]
--- NOTE | 2020-03-28 12:57 | PCM48HPAN ---
Post Anesthesia Note - EVALUATION WITHIN 48HRS OF ANESTHETIC Vital Signs in Normal Range: Yes Patient Participated in Evaluation: Yes Respiratory Function Stable: Yes Airway Patent: Yes Cardiovascular Function Stable: Yes Hydration Status Stable: Yes Pain Control Satisfactory: Yes Nausea and Vomiting Control Satisfactory: Yes Mental Status Recovered: Yes Vital Signs: Last Vital Signs Temp 97.9 F 03/28/20 11:01 Pulse 81 03/28/20 11:27 Resp 18 03/28/20 11:27 BP 133/75 03/28/20 11:27 Pulse Ox 95 03/28/20 11:27
[2020-03-28 14:25] VITALS: BP 147/78; PULSE 77
== END 2020-03-28 13:40 | disposition home or self-care (01) ==
LOC: MW.SDS 08:16
PROVIDERS: ATTEND Surgery
DX: K80.10 Calculus of gallbladder with chronic cholecystitis without obstruction (principal); K85.10 Biliary acute pancreatitis without necrosis or infection; E66.9 Obesity, unspecified; Z79.899 Other long term (current) drug therapy; Z68.36 Body mass index [BMI] 36.0-36.9, adult
CPT/HCPCS: 36415; 47562; 80053; 81025; 82150; 83690; 85025; A9270; J0131; J0690; J1100; J1200; J2001; J2250; J2405; J2704; J3010; J3490; J7120; 00790; 88304

== ENCOUNTER 2022-08-07 21:07 | Emergency (ER) | payer BC ==
[2022-08-07 22:17] VITALS: PULSE 86
[2022-08-07] MEDS ORDERED: Sodium Chloride 0.9% 1,000 ML IV ONE (22:42)
[2022-08-07] MEDS ORDERED: Ketorolac 30 MG/ML SDV IVPUSH ONE (22:42)
[2022-08-07] MEDS ORDERED: Iopamidol 755 MG/ML 500 ML Multipack Bottle IVPUSH ONE (23:31)
[2022-08-07 23:42] LABS: CARBON DIOXIDE,CO2 26.3 mmol/L (21.0-32.0); POTASSIUM,K 3.8 mmol/L (3.5-5.1)
[2022-08-08 01:19] VITALS: BP 113/72
== END 2022-08-08 01:15 | disposition home or self-care (01) ==
LOC: MW.ED 21:07
DX: R10.12 Left upper quadrant pain (principal); E66.9 Obesity, unspecified; Z68.36 Body mass index [BMI] 36.0-36.9, adult
CPT/HCPCS: 36415; 74177; 80053; 81003; 81025; 83690; 83735; 85025; 96361; 96374; 99284; J1885; J7030; Q9967